=== PATIENT | female | born 1930 | race Caucasian/White ===

== ENCOUNTER 2018-02-04 11:58 | Inpatient (IN) | payer MEDICARE, OTHER ==
[~2018-02-04] VITALS: Ht 167.6 cm; Wt 64.2 kg
[2018-02-04 12:13] VITALS: BP 132/58; PULSE 50; RESP 15; TEMP 97.8; O2SAT 99
--- NOTE | 2018-02-04 12:22 | PD ---
HPI Chief Complaint: Respiratory Symptoms Time Seen by Provider: 12:08 Travel History International Travel<30 days: No Contact w/Intl Traveler<30days: No Traveled to known affect area: No History of Present Illness HPI 87-year-old female that presents to the ED for evaluation of shortness of breath with exertion as well as possible CHF exacerbation. Patient has a history of CHF, COPD, atrial fibrillation but comes here for evaluation of shortness of breath. Per patient her shortness of breath is chronic and she uses oxygen at home as well as inhalers and diuretics. Per patient she is being gaining of a 7 pounds in the past 2 weeks as well as her legs have been increasingly getting more swollen with more shortness of breath with exertion as well as with laying down. Per patient his symptoms worsened today which is what prompted family to call ambulance. Ambulance was able to give patient some breathing treatments as well as Solu-Medrol with improvement of symptoms but she continues to be swelling and complaints of shortness of breath. She denies any history of thoracocentesis. She states that she has no chest pain. No trauma. No headache. She does take Eliquis as a blood thinner. She is supposed to follow with Dr. Baure for cardiology but has not done so yet. She is new to [facility] and she is currently moving here to live. She does have multiple allergies to different medications. She denies any urinary or bowel movement issues. She states that the swelling of her legs has worsened for the past 4 days. Weight gain 7 pounds for 2 weeks. Shortness of breath worse for the past 3 days. She has orthopnea. PFSH Past Medical History Hx Anticoagulant Therapy: Yes (Eliquis) Cardiovascular Problems: Yes (CHF, CABG) Diabetes: Yes Respiratory: Yes (COPD) ?: Not Social History Tobacco Use: No Allergies-Medications (Allergen,Severity, Reaction): Coded Allergies: indomethacin (Verified Allergy, Severe, Swelling, 02/04/18) RAMO Inhibitors (Verified Allergy, Mild, Rash, 02/04/18) Penicillins (Verified Allergy, Mild, Rash, 02/04/18) colchicine (Verified Allergy, Mild, Rash, 02/04/18) pneumococcal vaccine (Verified Allergy, Mild, Swelling, 02/04/18) levofloxacin (Verified Adverse Reaction, Intermediate, Dizziness, 02/04/18) adhesive tape (Verified Adverse Reaction, Mild, 02/04/18) hydrocodone (Verified Adverse Reaction, Mild, Nausea/Vomiting, 02/04/18) codeine (Verified Adverse Reaction, Unknown, Hallucinations, 02/04/18) tramadol (Verified Adverse Reaction, Unknown, Nausea/Vomiting, 02/04/18) Reported Meds & Prescriptions Reported Meds & Active Scripts Active Reported Bumetanide 1 Mg Tab 1-3 Mg PO DIRECTED Carvedilol 6.25 Mg Tab 3.125 Mg PO BID Atorvastatin (Atorvastatin Calcium) 10 Mg Tab 10 Mg PO HS Eliquis (Apixaban) 2.5 Mg Tab 2.5 Mg PO BID Amiodarone (Amiodarone HCl) 100 Mg Tab 100 Mg PO DAILY Acetaminophen Extra Strength (Acetaminophen) 500 Mg Tablet 2 Tab PO BID PRN Cetirizine (Cetirizine HCl) 10 Mg Tab 10 Mg DAILY Review of Systems Except as stated in HPI: all other systems reviewed are Neg Physical Exam Narrative GENERAL: SKIN: Warm and dry. HEAD: Atraumatic. Normocephalic. EYES: Pupils equal and round. No scleral icterus. No injection or drainage. ENT: No nasal bleeding or discharge. Mucous membranes pink and moist. Tongue is midline. No uvula deviation. NECK: Trachea midline. No JVD. CARDIOVASCULAR: Regular rate and rhythm. No murmurs, S3, S4. RESPIRATORY: No accessory muscle use. Clear to auscultation. Breath sounds equal bilaterally. GASTROINTESTINAL: Abdomen soft, non-tender, nondistended. Hepatic and splenic margins not palpable. MUSCULOSKELETAL: Extremities without clubbing, cyanosis, or edema. No obvious deformities. Full range of motion of the upper and lower extremities bilaterally. 2+ pulses bilaterally. Patient does have 2+ pitting edema on the lower extremities or more noted on the upper part of the leg in the lower aspect. NEUROLOGICAL: Awake and alert. No obvious cranial nerve deficits. Motor grossly within normal limits. Five out of 5 muscle strength in the arms and legs. Normal speech. PSYCHIATRIC: Appropriate mood and affect; insight and judgment normal. Data Data Last Documented VS Vital Signs Date Time Temp Pulse Resp B/P (MAP) Pulse Ox O2 Delivery O2 Flow Rate FiO2 02/04/18 12:13 97.8 50 15 132/58 (82) 99 Nasal Cannula 2.00 Orders Orders Electrocardiogram (02/04/18 12:14) Complete Blood Count With Diff (02/04/18 12:14) Comprehensive Metabolic Panel (02/04/18 12:14) B-Type Natriuretic Peptide (02/04/18 12:14) Prothrombin Time / Inr (Pt) (02/04/18 12:14) Act Partial Throm Time (Ptt) (02/04/18 12:14) Magnesium (Mg) (02/04/18 12:14) Thyroid Stimulating Hormone (02/04/18 12:14) Chest, Single Ap (02/04/18 12:14) Iv Access Insert/Monitor (02/04/18 12:14) Ecg Monitoring (02/04/18 12:14) Oximetry (02/04/18 12:14) Us Leg Venous Doppler Bilat (02/04/18 ) Type And Screen (02/04/18 12:53) Red Blood Cells (Rbc) (02/04/18 12:53) Blood Product Administration (02/04/18 12:53) Sodium Chlor 0.9% 250 Ml Inj (Ns 250 Ml (02/04/18 13:00) Admit Order (Ed Use Only) (02/04/18 13:51) Labs Laboratory Tests Test 02/04/18 12:20 White Blood Count 6.5 TH/MM3 Red Blood Count 2.40 MIL/MM3 Hemoglobin 6.9 GM/DL Hematocrit 21.3 % Mean Corpuscular Volume 89.0 FL Mean Corpuscular Hemoglobin 28.6 PG Mean Corpuscular Hemoglobin Concent 32.2 % Red Cell Distribution Width 22.0 % Platelet Count 187 TH/MM3 Mean Platelet Volume 8.3 FL Neutrophils (%) (Auto) 65.5 % Lymphocytes (%) (Auto) 10.6 % Monocytes (%) (Auto) 12.8 % Eosinophils (%) (Auto) 10.3 % Basophils (%) (Auto) 0.8 % Neutrophils # (Auto) 4.2 TH/MM3 Lymphocytes # (Auto) 0.7 TH/MM3 Monocytes # (Auto) 0.8 TH/MM3 Eosinophils # (Auto) 0.7 TH/MM3 Basophils # (Auto) 0.0 TH/MM3 CBC Comment DIFF FINAL Differential Comment Prothrombin Time 12.9 SEC Prothromb Time International Ratio 1.3 RATIO Activated Partial Thromboplast Time 31.6 SEC Blood Urea Nitrogen 93 MG/DL Creatinine 2.97 MG/DL Random Glucose 117 MG/DL Total Protein 6.5 GM/DL Albumin 2.8 GM/DL Calcium Level 8.2 MG/DL Magnesium Level 2.1 MG/DL Alkaline Phosphatase 89 U/L Aspartate Amino Transf (AST/SGOT) 9 U/L Alanine Aminotransferase (ALT/SGPT) 13 U/L Total Bilirubin 0.4 MG/DL Sodium Level 138 MEQ/L Potassium Level 4.7 MEQ/L Chloride Level 102 MEQ/L Carbon Dioxide Level 27.4 MEQ/L Anion Gap 9 MEQ/L Estimat Glomerular Filtration Rate 15 ML/MIN B-Type Natriuretic Peptide 313 PG/ML Thyroid Stimulating Hormone 3rd Gen 5.740 uIU/ML MDM Medical Decision Making Medical Screen Exam Complete: Yes Emergency Medical Condition: Yes Medical Record Reviewed: Yes Interpretation(s) CBC & BMP Diagram 02/04/18 12:20 Total Protein 6.5, Albumin 2.8 L, Calcium Level 8.2 L, Magnesium Level 2.1, Alkaline Phosphatase 89, Aspartate Amino Transf (AST/SGOT) 9 L, Alanine Aminotransferase (ALT/SGPT) 13, Total Bilirubin 0.4 BNP elevated in the 300s Last Impressions Chest X-Ray 02/04/18 1214 Signed Impressions: Service Date/Time: Sunday, February 04, 2018 12:24 - CONCLUSION: 1. Cardiomegaly. The patient status post sternotomy. 2. Hyperinflated lungs. Ollie Olivas MD coags WNL Differential Diagnosis CHF exacerbation versus DVT versus COPD exacerbation versus fluid overload versus kidney failure versus acute on chronic kidney failure versus shortness of breath Narrative Course 87-year-old female that presents to the ED for evaluation of shortness of breath. Patient was properly examined and was found to have signs and symptoms consistent appears to be likely CHF failure. Labs and imaging ordered. Labs and imaging showed what appears to be acute on chronic kidney disease as well as symptomatic anemia and what appears to be CHF exacerbation. Unclear etiology of the actual symptoms the patient reports he does have 3 things against her. I do recommend admission for this. My attending Dr. Billy spoke with the family and patient were in agreement with plan. Family preferred that I do not do a rectal exam on the patient has she has had multiple workups before to have been all negative for GI bleed. She has chronic anemia for about 20 years and she gets a shot every other week but she has not gotten since November and they are concerned that this is likely what it is. She denies any signs of GI bleed or any sign of actively bleeding. Likely this is the cause of this. At this time case was discussed with Dr. Jordan who agrees to admission. I will defer giving patient any diuretics at this time secondary to her acute on chronic kidney disease. Diagnosis Primary Impression: Acute exacerbation of CHF (congestive heart failure) Qualified Codes: I50.9 - Heart failure, unspecified Additional Impressions: [id number] kidney injury Qualified Codes: N17.9 - Acute kidney failure, unspecified; N18.9 - Chronic kidney disease, unspecified Symptomatic anemia Admitting Information Admitting Physician Requests: Admit Lorenzo Sanchez Feb 04, 2018 12:22
[2018-02-04] MEDS ORDERED: CETI10 (12:42)
[2018-02-04] MEDS ORDERED: ACET-898 PO (12:42)
[2018-02-04] MEDS ORDERED: LANTUS2P SQ (12:42)
[2018-02-04] MEDS ORDERED: APIX2.5T PO (12:42)
[2018-02-04] MEDS ORDERED: AMIO0.1T PO (12:42)
[2018-02-04] MEDS ORDERED: INSU100C SQ (12:42)
[2018-02-04] MEDS ORDERED: VENTAER INH (12:42)
[2018-02-04] MEDS ORDERED: ISOS10TA3 PO (12:42)
[2018-02-04] MEDS ORDERED: BUME1TAB PO (12:42)
[2018-02-04] MEDS ORDERED: ATOR10TA15 PO (12:42)
[2018-02-04] MEDS ORDERED: CARV6.252 PO (12:42)
[2018-02-04] MEDS ORDERED: COLA100C5 PO (12:42)
[2018-02-04] MEDS ORDERED: MUCI60TA9 (12:42)
[2018-02-04] MEDS ORDERED: PRIL20TA2 (12:42)
[2018-02-04 12:46] LABS: AUTOMATED NEUTROPHIL # 4.2 TH/MM3 (1.8-7.7); BASOPHIL % 0.8 % (0.0-2.0); EOSINOPHIL # 0.7 TH/MM3 (0-0.4); EOSINOPHIL % 10.3 % (0.0-4.0); LYMPH % 10.6 % (9.0-44.0); LYMPHOCYTE # 0.7 TH/MM3 (1.0-4.8); MEAN CORPUSCULAR HEMOGLOBIN 28.6 PG (27.0-34.0); MEAN CORPUSCULAR HGB CONC 32.2 % (32.0-36.0); MEAN PLATELET VOLUME 8.3 FL (7.0-11.0); MONO % 12.8 % (0.0-8.0); MONOCYTE # 0.8 TH/MM3 (0-0.9); NEUT % 65.5 % (16.0-70.0); PLATELET COUNT 187 TH/MM3 (150-450); WHITE BLOOD COUNT 6.5 TH/MM3 (4.0-11.0)
[2018-02-04 12:53] LABS: HEMATOCRIT 21.3 % (35.0-46.0); HEMOGLOBIN 6.9 GM/DL (11.6-15.3)
--- NOTE | 2018-02-04 12:53 | RADRPT ---
EXAM DATE/TIME: 02/04/2018 12:24 [facility] COMPARISON: No previous studies available for comparison. INDICATIONS : Shortness of breath. MEDICAL HISTORY : Chronic obstructive pulmonary disease. Congestive heart failure. SURGICAL HISTORY : CABG. ENCOUNTER: Initial ACUITY: 1 day PAIN SCORE: 0/10 LOCATION: Bilateral chest FINDINGS: The patient is status post sternotomy. The heart size is enlarged. Lungs appear hyperinflated. There is a calcified granuloma at the left lung base. Lungs appear free of focal consolidation. No effusion is seen. Vascular calcifications are seen. CONCLUSION: 1. Cardiomegaly. The patient status post sternotomy. 2. Hyperinflated lungs. Ollie Olivas MD on February 04, 2018 at 12:50 Board Certified Radiologist. This report was verified electronically.
[2018-02-04 12:56] LABS: INTERNATIONAL NORMALIZED RATIO 1.3 RATIO; PROTHROMBIN TIME - PATIENT 12.9 SEC (9.8-11.6)
[2018-02-04] MEDS ORDERED: SODIUM CHLOR 0.9% 250 ML INJ 250 ML IV ONE (13:00)
[2018-02-04 13:07] LABS: ALBUMIN 2.8 GM/DL (3.4-5.0); ALT (GPT) 13 U/L (10-53); AST (GOT) 9 U/L (15-37); BICARBONATE 27.4 MEQ/L (21.0-32.0); BLOOD UREA NITROGEN 93 MG/DL (7-18); CALCIUM 8.2 MG/DL (8.5-10.1); CHLORIDE 102 MEQ/L (98-107); CREATININE 2.97 MG/DL (0.50-1.00); GLOMERULAR FILTRATION RATE 15 ML/MIN (>89); GLUCOSE,RANDOM 117 MG/DL (74-106); MAGNESIUM 2.1 MG/DL (1.5-2.5); SODIUM (NA) 138 MEQ/L (136-145)
[2018-02-04 13:16] LABS: ALKALINE PHOSPHATASE 89 U/L (45-117); TOTAL BILIRUBIN ADULT 0.4 MG/DL (0.2-1.0); TOTAL PROTEIN 6.5 GM/DL (6.4-8.2)
--- NOTE | 2018-02-04 14:18 | RADRPT ---
EXAM DATE/TIME: 02/04/2018 13:12 [facility] COMPARISON: No previous studies available for comparison. INDICATIONS : Shortness of breath. Bilateral leg swelling. MEDICAL HISTORY : Congestive heart failure. Chronic obstructive pulmonary disease. Diabetic. SURGICAL HISTORY : CABGAppendectomy. Hysterectomy. ENCOUNTER: Initial ACUITY: 4 - 6 days PAIN SCORE: 7/10 LOCATION: Bilateral leg. TECHNIQUE: Venous ultrasound of the left and right leg was performed from the inguinal ligament to the proximal calf. Real-time, color Doppler and spectral tracing, compression and augmentation techniques were us ed. FINDINGS: RIGHT LEG: There is normal compressibility of the deep venous system from the inguinal region to the proximal ca lf. No echogenic clot is seen in the lumen of the common femoral, femoral, popliteal, and posterior tibial veins. There is a normal response of the venous system to proximal and distal augmentation an d respiration. LEFT LEG: There is normal compressibility of the deep venous system from the inguinal region to the proximal ca lf. No echogenic clot is seen in the lumen of the common femoral, femoral, popliteal, and posterior tibial veins. There is a normal response of the venous system to proximal and distal augmentation an d respiration. CONCLUSION: 1. No sonographic evidence for lower extremity DVT. Hemant Nye MD on February 04, 2018 at 14:15 Board Certified Radiologist. This report was verified electronically.
[2018-02-04] MEDS ORDERED: ONDANSETRON HCL 4 MG/2 ML VIAL IVP PRN (14:30)
[2018-02-04] MEDS ORDERED: SODIUM CHLORIDE 0.9% FLUSH 10 ML FLUSH IV FLUSH PRN (14:30)
[2018-02-04] MEDS ORDERED: LACTULOSE SYRUP 20 GM/30 ML CUP PO PRN (14:30)
[2018-02-04] MEDS ORDERED: MAGNESIUM HYDROXIDE SUSP 30 ML CUP PO PRN (14:30)
[2018-02-04] MEDS ORDERED: SENNOSIDES 8.6 MG TAB PO PRN (14:30)
[2018-02-04] MEDS ORDERED: NALOXONE HCL 0.4 MG/ML AMP IV PUSH PRN (14:30)
[2018-02-04] MEDS ORDERED: BISACODYL 10 MG SUPP RECTAL PRN (14:30)
[2018-02-04] MEDS ORDERED: oxyCODONE/ACETAMINOPHEN 5 MG/325 MG TAB PO PRN (14:30)
[2018-02-04] MEDS ORDERED: ACETAMINOPHEN 325 MG TAB PO PRN (14:30)
--- NOTE | 2018-02-04 14:56 | EKG ---
Date Performed: 02/04/2018 Time Performed: 12:21:03 PTAGE: 87 years EKG: Unclear underlying rhythm due to artifact. MARKED LEFT AXIS DEVIATION RIGHT BUNDLE BRANCH B LOCK SEPTAL MYOCARDIAL INFARCTION Nonspecific T wave changes NO PREVIOUS TRACING DOCTOR: Javid Chacon Interpretating Date/Time 02/04/2018 14:55:25
[2018-02-04 15:25] LABS: % SATURATION IRON PROFILE 14.8 % (20-50); IRON (FE) 41 MCG/DL (50-170); TOTAL IRON BINDING CAPACITY 277 MCG/DL (250-450)
[2018-02-04 15:27] LABS: FERRITIN 166 NG/ML (8-252)
--- NOTE | 2018-02-04 16:25 | PD.PN.STU ---
Subjective Remarks 87 year old, white, female with history of CHF, COPD, Atrial fibrillation,Anemia , Chronic Kidney Disease, and Diabetes Mellitus presented with 2 shortness of breath for 2 days duration. Associated symptoms include lower extremity edema, approximate 7 lb weight gain over 2 week, and orthopnea. EVAC gave her Solu- Medrol and nebulizer with significant improvement of her dyspnea. She has had 2 hospitalizations for CHF exacerbation since August where she previously lived in [place]. Unsure of patients baseline kidney, pulmonary, and cardiac function. She was previously receiving Procrit for her chronic anemia but her last was in November. She has had an extensive GI and heme/onc work-up for her anemia and does not wish to receive anything invasive for her anemia currently. She moved to [facility] 2 weeks ago to live with her son. Records pending transfer. She has established with a new primary care physician in the area but has not been able to establish with any specialist. Review of systems: as noted in HPI Negative for diarrhea, nausea, vomiting, blood in stool. PMH: Chronic Kidney disease - unknown etiology, pending medical records transfer Atrial Fibrillation - Elliquis for anticoagulation therapy COPD Diabetes Congestive Heart Failure PSH: Hysterectomy CABG 1998 Objective Vitals Vital Signs Date Time Temp Pulse Resp B/P (MAP) Pulse Ox O2 Delivery O2 Flow Rate FiO2 02/04/18 12:13 97.8 50 15 132/58 (82) 99 Nasal Cannula 2.00 Result Diagram: 02/04/18 1220 02/04/18 1220 Other Results Laboratory Tests Test 02/04/18 12:20 Red Blood Count 2.40 MIL/MM3 (4.00-5.30) Hemoglobin 6.9 GM/DL (11.6-15.3) Hematocrit 21.3 % (35.0-46.0) Red Cell Distribution Width 22.0 % (11.6-17.2) Monocytes (%) (Auto) 12.8 % (0.0-8.0) Eosinophils (%) (Auto) 10.3 % (0.0-4.0) Lymphocytes # (Auto) 0.7 TH/MM3 (1.0-4.8) Eosinophils # (Auto) 0.7 TH/MM3 (0-0.4) Prothrombin Time 12.9 SEC (9.8-11.6) Activated Partial Thromboplast Time 31.6 SEC (24.3-30.1) Blood Urea Nitrogen 93 MG/DL (7-18) Creatinine 2.97 MG/DL (0.50-1.00) Random Glucose 117 MG/DL (74-106) Albumin 2.8 GM/DL (3.4-5.0) Calcium Level 8.2 MG/DL (8.5-10.1) Aspartate Amino Transf (AST/SGOT) 9 U/L (15-37) Estimat Glomerular Filtration Rate 15 ML/MIN (>89) Iron Level 41 MCG/DL (50-170) Percent Iron Saturation 14.8 % (20-50) B-Type Natriuretic Peptide 313 PG/ML (0-100) Thyroid Stimulating Hormone 3rd Gen 5.740 uIU/ML (0.358-3.740) Imaging Last 24 hours Impressions Chest X-Ray 02/04/18 1214 Signed Impressions: Service Date/Time: Sunday, February 04, 2018 12:24 - CONCLUSION: 1. Cardiomegaly. The patient status post sternotomy. 2. Hyperinflated lungs. Ollie Olivas MD Lower Extremity Ultrasound 02/04/18 0000 Signed Impressions: Service Date/Time: Sunday, February 04, 2018 13:12 - CONCLUSION: 1. No sonographic evidence for lower extremity DVT. Hemant Nye MD Objective Remarks GENERAL: Frail, appears her stated age SKIN: Warm and dry. HEAD: Normocephalic. atraumatic EYES: No scleral icterus. No injection or drainage NECK: Supple, trachea midline. JVD present. CARDIOVASCULAR: Regular rate and rhythm with faint systolic murmur best appreciated at the apex; no gallops, or rubs. RESPIRATORY: Breath sounds diminished equally bilateral. Crackles appreciated lower lung pancahl bilaterally. No accessory muscle use. GASTROINTESTINAL: Abdomen soft, non-tender, nondistended. MUSCULOSKELETAL: No cyanosis, 3+ pitting edema to the level of the knee bilaterally. BACK: Nontender without obvious deformity. Medications and IVs Current Medications Medications (Trade) Dose Ordered Sig/Elizabeth Route Start Time Stop Time Status Last Admin Sodium Chloride 250 ml @ 15 mls/hr ONCE ONCE IV 02/04/18 13:00 02/05/18 05:39 (NS Flush) 2 ml UNSCH PRN IV FLUSH 02/04/18 14:30 (NS Flush) 2 ml BID IV FLUSH 02/04/18 21:00 (Zofran Inj) 4 mg Q6H PRN IVP 02/04/18 14:30 (Tylenol) 650 mg Q6H PRN PO 02/04/18 14:30 (Percocet 5-325 Mg) 1 tab Q6H PRN PO 02/04/18 14:30 (Narcan Inj) 0.4 mg UNSCH PRN IV PUSH 02/04/18 14:30 (Linh-Colace) 1 tab BID PO 02/04/18 21:00 (Milk Of Magnesia Liq) 30 ml Q12H PRN PO 02/04/18 14:30 (Senokot) 17.2 mg Q12H PRN PO 02/04/18 14:30 (Dulcolax Supp) 10 mg DAILY PRN RECTAL 02/04/18 14:30 (Lactulose Liq) 30 ml DAILY PRN PO 02/04/18 14:30 A/P Assessment and Plan 1. CHF Exacerbation: Evidence of fluid overload with prominent edema and fluid in the lungs. Possible relation to her chronic anemia with no Procrit for 2 months leading to cardiac decompensation. CXR showed cardiomegaly. BNP 313. - Admit to floor for transfusion of 1 unit packed RBCs - Consult cardiology - order echo - start furosemide with monitoring of kidney function. 2. Kidney Failure: BUN 93, creatinine 2.97. - consult nephrology - monitor kidney function 3. COPD: good results with nebulizer and solu-medrol upon arrival. Consider possible COPD exacerbation concordantly. - 2 L nasal cannula - consult pulmonology 4. DM: patient has been experiencing signs and symptoms of hypoglycemia at home before presenting. Glucose on admission 117. - consider sliding scale insulin Moon Castrejon M3 Feb 04, 2018 16:25
[2018-02-04] MEDS: FUROSEMIDE 40 MG/4 ML VIAL IV PUSH SCH (17:00)
[2018-02-04 17:03] VITALS: BP 167/69; PULSE 63; RESP 18; O2SAT 97
--- NOTE | 2018-02-04 17:30 | HHI.HP ---
HPI Service [facility] Hospitalists Primary Care Physician Henry Rogers, Admission Diagnosis acute CHF exacerbation, acute on chronic kidney disease, anemia Diagnoses: Chief Complaint: Shortness of breath, bilateral extremity edema. Travel History International Travel<30 Days: No Contact w/Intl Traveler <30 Da: No Traveled to Known Affected Are: No History of Present Illness This is an 87-year-old white female with history of CHF, COPD, atrial fibrillation, anemia, chronic kidney disease and diabetes mellitus type 2 who presents to [facility] complaining of worsening shortness of breath for the past 2-3 days. The patient also states has been having worsening bilateral extremity edema, orthopnea, approximately 7 pound weight gain over 2 weeks. As per medical records EVAC gave her Solu-Medrol nebulizer with significant improvement of her dyspnea. Recent however denies any chest pain, fevers, chills, cough. As per patient and family members were at bedside the patient has had 2 recent hospitalization for CHF exacerbation since August where she previously lived in [place]. The patient is unknown of her baseline kidney, however states that she has been getting Procrit before for her chronic anemia, however she last received it in November. As per patient's account she states that she had extensive GI and hematology workup for her anemia and she refuses to have anything invasive done for her anemia. The patient moved to [place] 2 weeks ago with her son. Otherwise the patient denies any fevers, chills, chest pain, headache, dizziness. States she feels tired. Patient also denies any nausea, vomiting or diarrhea. The patient denies melena or hematochezia. Review of Systems As per HPI, other systems reviewed by me and negative. Past Family Social History Past Medical History Chronic Kidney disease - unknown etiology, pending medical records transfer Atrial Fibrillation - Elliquis for anticoagulation therapy COPD Diabetes Congestive Heart Failure Past Surgical History Hysterectomy CABG 1998 Reported Medications Reported Meds & Active Scripts Active Reported Bumetanide 1 Mg Tab 1-3 Mg PO DIRECTED Carvedilol 6.25 Mg Tab 3.125 Mg PO BID Atorvastatin (Atorvastatin Calcium) 10 Mg Tab 10 Mg PO HS Eliquis (Apixaban) 2.5 Mg Tab 2.5 Mg PO BID Amiodarone (Amiodarone HCl) 100 Mg Tab 100 Mg PO DAILY Acetaminophen Extra Strength (Acetaminophen) 500 Mg Tablet 2 Tab PO BID PRN Cetirizine (Cetirizine HCl) 10 Mg Tab 10 Mg DAILY Allergies: Coded Allergies: indomethacin (Verified Allergy, Severe, Swelling, 02/04/18) RAMO Inhibitors (Verified Allergy, Mild, Rash, 02/04/18) Penicillins (Verified Allergy, Mild, Rash, 02/04/18) colchicine (Verified Allergy, Mild, Rash, 02/04/18) pneumococcal vaccine (Verified Allergy, Mild, Swelling, 02/04/18) levofloxacin (Verified Adverse Reaction, Intermediate, Dizziness, 02/04/18) adhesive tape (Verified Adverse Reaction, Mild, 02/04/18) hydrocodone (Verified Adverse Reaction, Mild, Nausea/Vomiting, 02/04/18) codeine (Verified Adverse Reaction, Unknown, Hallucinations, 02/04/18) tramadol (Verified Adverse Reaction, Unknown, Nausea/Vomiting, 02/04/18) Active Ordered Medications Current Medications Medications (Trade) Dose Ordered Sig/Elizabeth Route Start Time Stop Time Status Last Admin Sodium Chloride 250 ml @ 15 mls/hr ONCE ONCE IV 02/04/18 13:00 02/05/18 05:39 (NS Flush) 2 ml UNSCH PRN IV FLUSH 02/04/18 14:30 (NS Flush) 2 ml BID IV FLUSH 02/04/18 21:00 (Zofran Inj) 4 mg Q6H PRN IVP 02/04/18 14:30 (Tylenol) 650 mg Q6H PRN PO 02/04/18 14:30 (Percocet 5-325 Mg) 1 tab Q6H PRN PO 02/04/18 14:30 (Narcan Inj) 0.4 mg UNSCH PRN IV PUSH 02/04/18 14:30 (Linh-Colace) 1 tab BID PO 02/04/18 21:00 (Milk Of Magnesia Liq) 30 ml Q12H PRN PO 02/04/18 14:30 (Senokot) 17.2 mg Q12H PRN PO 02/04/18 14:30 (Dulcolax Supp) 10 mg DAILY PRN RECTAL 02/04/18 14:30 (Lactulose Liq) 30 ml DAILY PRN PO 02/04/18 14:30 (Lasix Inj) 40 mg DAILY IV PUSH 02/04/18 16:00 02/04/18 17:00 Physical Exam Vital Signs Vital Signs Date Time Temp Pulse Resp B/P (MAP) Pulse Ox O2 Delivery O2 Flow Rate FiO2 02/04/18 12:13 97.8 50 15 132/58 (82) 99 Nasal Cannula 2.00 Physical Exam GENERAL: This is a well-nourished, well-developed patient, in no apparent distress. SKIN: No rashes, ecchymoses or lesions. Cool and dry. HEAD: Atraumatic. Normocephalic. No temporal or scalp tenderness. EYES: Pupils equal round and reactive. Extraocular motions intact. No scleral icterus. No injection or drainage. ENT: Nose without bleeding, purulent drainage or septal hematoma. Throat without erythema, tonsillar hypertrophy or exudate. Uvula midline. Airway patent. NECK: Trachea midline. No JVD or lymphadenopathy. Supple, nontender, no meningeal signs. CARDIOVASCULAR: Regular rate and rhythm without murmurs, gallops, or rubs. RESPIRATORY: Clear to auscultation. Breath sounds equal bilaterally. No wheezes , rales, or rhonchi. GASTROINTESTINAL: Abdomen soft, non-tender, nondistended. No hepato-splenomegaly , or palpable masses. No guarding. MUSCULOSKELETAL: Extremities without clubbing, cyanosis, or edema. No joint tenderness, effusion, or edema noted. No calf tenderness. Negative Homans sign bilaterally. NEUROLOGICAL: Awake and alert. Cranial nerves II through XII intact. Motor and sensory grossly within normal limits. Five out of 5 muscle strength in all muscle groups. Normal speech. Laboratory Laboratory Tests Test 02/04/18 12:20 White Blood Count 6.5 Red Blood Count 2.40 Hemoglobin 6.9 Hematocrit 21.3 Mean Corpuscular Volume 89.0 Mean Corpuscular Hemoglobin 28.6 Mean Corpuscular Hemoglobin Concent 32.2 Red Cell Distribution Width 22.0 Platelet Count 187 Mean Platelet Volume 8.3 Neutrophils (%) (Auto) 65.5 Lymphocytes (%) (Auto) 10.6 Monocytes (%) (Auto) 12.8 Eosinophils (%) (Auto) 10.3 Basophils (%) (Auto) 0.8 Neutrophils # (Auto) 4.2 Lymphocytes # (Auto) 0.7 Monocytes # (Auto) 0.8 Eosinophils # (Auto) 0.7 Basophils # (Auto) 0.0 CBC Comment DIFF FINAL Differential Comment Prothrombin Time 12.9 Prothromb Time International Ratio 1.3 Activated Partial Thromboplast Time 31.6 Blood Urea Nitrogen 93 Creatinine 2.97 Random Glucose 117 Total Protein 6.5 Albumin 2.8 Calcium Level 8.2 Magnesium Level 2.1 Alkaline Phosphatase 89 Aspartate Amino Transf (AST/SGOT) 9 Alanine Aminotransferase (ALT/SGPT) 13 Total Bilirubin 0.4 Sodium Level 138 Potassium Level 4.7 Chloride Level 102 Carbon Dioxide Level 27.4 Anion Gap 9 Estimat Glomerular Filtration Rate 15 Iron Level 41 Total Iron Binding Capacity 277 Percent Iron Saturation 14.8 Ferritin 166 B-Type Natriuretic Peptide 313 Thyroid Stimulating Hormone 3rd Gen 5.740 Result Diagram: 02/04/18 1220 02/04/18 1220 Imaging Last Impressions Chest X-Ray 02/04/18 1214 Signed Impressions: Service Date/Time: Sunday, February 04, 2018 12:24 - CONCLUSION: 1. Cardiomegaly. The patient status post sternotomy. 2. Hyperinflated lungs. Ollie Olivas MD Lower Extremity Ultrasound 02/04/18 0000 Signed Impressions: Service Date/Time: Sunday, February 04, 2018 13:12 - CONCLUSION: 1. No sonographic evidence for lower extremity DVT. Hemant Nye MD Caprini VTE Risk Assessment Caprini VTE Risk Assessment: Mod/High Risk (score >= 2) VTE Pharm Contraindication: Documented Caprini Risk Assessment Model Point Value = 1 Point Value = 2 Point Value = 3 Point Value = 5 Age 41-60 Minor surgery BMI > 25 kg/m2 Swollen legs Varicose veins or History of unexplained or recurrent spontaneous Oral contraceptives or hormone replacement Sepsis (< 1 month) Serious lung disease, including pneumonia (< 1 month) Abnormal pulmonary function Acute myocardial infarction Congestive heart failure (< 1 month) History of inflammatory bowel disease Medical patient at bed rest Age 61-74 Arthroscopic surgery Major open surgery (> 45 min) Laparoscopic surgery (> 45 min) Malignancy Confined to bed (> 72 hours) Immobilizing plaster cast Central venous access Age >= 75 History of VTE Family history of VTE Factor V Leiden Prothrombin [id number] Lupus anticoagulant Anticardiolipin antibodies Elevated serum homocysteine Heparin-induced thrombocytopenia Other congenital or acquired thrombophilia Stroke (< 1 month) Elective arthroplasty Hip, pelvis, or leg fracture Acute spinal cord injury (< 1 month) Prophylaxis Regimen Total Risk Factor Score Risk Level Prophylaxis Regimen 0-1 Low Early ambulation 2 Moderate Order ONE of the following: *Sequential Compression Device (SCD) *Heparin 5000 units SQ BID 3-4 Higher Order ONE of the following medications: *Heparin 5000 units SQ TID *Enoxaparin/Lovenox 40 mg SQ daily (WT < 150 kg, CrCl > 30 mL/min) *Enoxaparin/Lovenox 30 mg SQ daily (WT < 150 kg, CrCl > 10-29 mL/min) *Enoxaparin/Lovenox 30 mg SQ BID (WT < 150 kg, CrCl > 30 mL/min) AND/OR *Sequential Compression Device (SCD) 5 or more Highest Order ONE of the following medications: *Heparin 5000 units SQ TID (Preferred with Epidurals) *Enoxaparin/Lovenox 40 mg SQ daily (WT < 150 kg, CrCl > 30 mL/min) *Enoxaparin/Lovenox 30 mg SQ daily (WT < 150 kg, CrCl > 10-29 mL/min) *Enoxaparin/Lovenox 30 mg SQ BID (WT < 150 kg, CrCl > 30 mL/min) AND *Sequential Compression Device (SCD) Assessment and Plan Problem List: (1) Symptomatic anemia ICD Code: D64.9 - Anemia, unspecified Status: Acute Plan: The patient to the medical floor, monitor on telemetry Transfuse unit of packed red blood cells Consult hematology. Check stool guaiac Recent refuses any GI intervention. (2) Acute exacerbation of CHF (congestive heart failure) ICD Code: I50.9 - Heart failure, unspecified Status: Acute Plan: Unknown at this time if systolic or diastolic. The patient states she has had a recent echocardiogram done on another facility in [place] last November. We will try to obtain records. Start IV Lasix 40 mg IV twice daily. Monitor renal function. (3) BREONNA (acute kidney injury) ICD Code: N17.9 - Acute kidney failure, unspecified Plan: Flattening 2.97 on admission. Unfortunately we do not have any previous records to compare with. Continue to monitor BUN/creatinine, monitor strict I's and O's, avoid nephrotoxins. (4) Diabetes ICD Code: E11.9 - Type 2 diabetes mellitus without complications Plan: Patient states she has been getting hypoglycemic in the mornings down to blood sugar 50s. I will hold patient's long-acting insulin and place only on short-acting insulin sliding scale. (5) Abnormal TSH ICD Code: R94.6 - Abnormal results of thyroid function studies Plan: TSH elevated. Will check free T4. Patient does not have history of hypothyroidism. (6) CAD (coronary artery disease) ICD Code: I25.10 - Atherosclerotic heart disease of [place] coronary artery without angina pectoris Plan: Status post CABG in 1998. Check cardiac enzymes and trend them. EKG reviewed by me shows a ventricular rate of 51 bpm, marked left axis deviation, right bundle branch block. Continue Eliquis, statin, beta-edy. (7) Atrial fibrillation ICD Code: I48.91 - Unspecified atrial fibrillation Plan: Now sinus rhythm. Continue amiodarone and Eliquis. Telemetry Assessment and Plan DVT prophylaxis: On Eliquis. Code Status Full code Discussed Condition With ED physician, patient and family members at bedside. Physician Certification 2 Midnight Certification Type: Admission for Inpatient Services Order for Inpatient Services The services are ordered in accordance with Medicare regulations or non- Medicare payer requirements, as applicable. In the case of services not specified as inpatient-only, they are appropriately provided as inpatient services in accordance with the 2-midnight benchmark. Estimated LOS (days): 2 days is the estimated time the patient will need to remain in the hospital, assuming treatment plan goals are met and no additional complications. Post-Hospital Plan: Home Problem Qualifiers (1) Acute exacerbation of CHF (congestive heart failure): Qualified Codes: I50.9 - Heart failure, unspecified (2) Diabetes: (3) Atrial fibrillation: Qualified Codes: I48.0 - Paroxysmal atrial fibrillation Ty Mora MD Feb 04, 2018 17:30
[2018-02-04] MEDS ORDERED: ALBUTEROL SULFATE 90 MCG/ACT HFA 8 GM INHALER INH PRN (17:45)
[2018-02-04] MEDS ORDERED: DEXTROSE 50% IN WATER 50 ML VIAL(D50) IV PUSH PRN (17:45)
[2018-02-04] MEDS ORDERED: ACETAMINOPHEN 500 MG CPLT PO PRN (17:45)
[2018-02-04] MEDS ORDERED: GLUCAGON 1 MG/ML VIAL OTHER PRN (17:45)
[2018-02-04] MEDS ORDERED: PILL SPLITTER OTHER PRN (18:00)
[2018-02-04 18:15] VITALS: BP 152/70; PULSE 64; RESP 21; TEMP 97.7; O2SAT 100
[2018-02-04 18:34] VITALS: BP 142/66; PULSE 72; RESP 20; TEMP 98.2; O2SAT 100
[2018-02-04 20:00] VITALS: BP 155/63; PULSE 66; RESP 19; TEMP 97.8; O2SAT 98
[2018-02-04 20:30] VITALS: BP 156/70; PULSE 66; RESP 18; TEMP 97.7; O2SAT 97
[2018-02-04] MEDS ORDERED: DOCUSATE SODIUM 50 MG/SENNA 8.6 MG TAB PO SCH (21:00)
[2018-02-04] MEDS: INSULIN ASPART SUPPLEMENTAL SCALE SQ SCH (21:04)
[2018-02-04] MEDS: DOCUSATE SODIUM 100 MG CAP PO SCH (21:26)
[2018-02-04] MEDS ORDERED: FUROSEMIDE 20 MG/2 ML VIAL IV PUSH ONE (21:30)
[2018-02-04] MEDS: APIXABAN 2.5 MG TABLET PO SCH (21:43)
[2018-02-04] MEDS: ATORVASTATIN 10 MG TAB PO SCH (21:44)
[2018-02-04] MEDS: CARVEDILOL 3.125 MG TAB PO SCH (21:44)
[2018-02-04] MEDS: SODIUM CHLORIDE 0.9% FLUSH 10 ML FLUSH IV FLUSH SCH (21:45)
[2018-02-04] MEDS: ISOSORBIDE MONONITRATE 20 MG TAB PO SCH (21:47)
[2018-02-05] VITALS (21 sets, daily range): BP systolic 123–156; BP diastolic 57–76; PULSE 53–69; RESP 17–20; TEMP 97.1–98.2; O2SAT 96–99
[2018-02-05] MEDS: RESP: ALBUTEROL 2.5 MG/IPRATROPIUM 0.5 MG NEB (PRN) NEB ×2 (00:53→09:41)
[2018-02-05 09:11] LABS: AUTOMATED NEUTROPHIL # 3.8 TH/MM3 (1.8-7.7); BASOPHIL % 0.5 % (0.0-2.0); EOSINOPHIL % 0.1 % (0.0-4.0); HEMATOCRIT 27.2 % (35.0-46.0); HEMOGLOBIN 9.2 GM/DL (11.6-15.3); LYMPH % 7.1 % (9.0-44.0); LYMPHOCYTE # 0.3 TH/MM3 (1.0-4.8); MEAN CELL VOLUME 87.9 FL (80.0-100.0); MEAN CORPUSCULAR HEMOGLOBIN 29.6 PG (27.0-34.0); MEAN CORPUSCULAR HGB CONC 33.7 % (32.0-36.0); MEAN PLATELET VOLUME 8.3 FL (7.0-11.0); MONO % 12.6 % (0.0-8.0); MONOCYTE # 0.6 TH/MM3 (0-0.9); NEUT % 79.7 % (16.0-70.0); PLATELET COUNT 186 TH/MM3 (150-450); RED CELL DISTRIBUTION WIDTH 18.2 % (11.6-17.2); WHITE BLOOD COUNT 4.8 TH/MM3 (4.0-11.0)
[2018-02-05] MEDS: INSULIN ASPART SUPPLEMENTAL SCALE SQ SCH ×4 (09:30→21:12)
[2018-02-05] MEDS: ISOSORBIDE MONONITRATE 20 MG TAB PO SCH ×2 (09:31→21:10)
[2018-02-05] MEDS: AMIODARONE 200 MG TAB PO SCH (09:31)
[2018-02-05] MEDS: CETIRIZINE HCL 10 MG TAB PO SCH (09:31)
[2018-02-05] MEDS: DOCUSATE SODIUM 100 MG CAP PO SCH ×2 (09:31→21:09)
[2018-02-05] MEDS: APIXABAN 2.5 MG TABLET PO SCH ×2 (09:31→21:10)
[2018-02-05] MEDS: CARVEDILOL 3.125 MG TAB PO SCH ×2 (09:32→21:10)
[2018-02-05 09:34] LABS: BICARBONATE 26.6 MEQ/L (21.0-32.0); CALCIUM 8.5 MG/DL (8.5-10.1); CREATININE 2.76 MG/DL (0.50-1.00)
[2018-02-05] MEDS: SODIUM CHLORIDE 0.9% FLUSH 10 ML FLUSH IV FLUSH SCH ×2 (09:34→21:12)
[2018-02-05] MEDS: FUROSEMIDE 40 MG/4 ML VIAL IV PUSH SCH ×2 (09:34→21:09)
[2018-02-05] MEDS: RESP: ALBUTEROL 2.5 MG/IPRATROPIUM 0.5 MG NEB (SCH) NEB ×3 (13:31→20:50)
--- NOTE | 2018-02-05 13:58 | ECHRPT ---
Indication: CARDIOMYOPATHY CONCLUSIONS Mild to moderately dilated left ventricle. Wall thickness is normal. The left ventricular systolic function is severely reduced with an estimated ejection fraction in th e range of 30-35%. There is global hypokinesis. The left atrial size is moderately dilated. The right atrial size is moderately dilated. Mild mitral annular calcification. Moderate mitral valve regurgitation. Mild aortic valve regurgitation. There is moderate tricuspid regurgitation. The estimated pulmonary arterial pressure is 50 mmHg. BP: / HR: Rhythm: Sinus MEASUREMENTS (Male / Female) Normal Values Technical Quality:Fair 2D ECHO LV Diastolic Diameter PLAX 5.9 cm 4.2 - 5.9 / 3.9 - 5.3 cm LV Systolic Diameter PLAX 5.3 cm IVS Diastolic Thickness 0.9 cm 0.6 - 1.0 / 0.6 - 0.9 cm LVPW Diastolic Thickness 0.9 cm 0.6 - 1.0 / 0.6 - 0.9 cm LV Relative Wall Thickness 0.3 RV Internal Dim ED PLAX 3.1 cm LVOT Diameter 1.8 cm Aortic Root Diameter 2.6 cm LA Systolic Diameter LX 4.1 cm 3.0 - 4.0 / 2.7 - 3.8 cm M-MODE AV Cusp Separation MM 1.9 cm DOPPLER AV Peak Velocity 143.0 cm/s AV Peak Gradient 8.2 mmHg AV Mean Gradient 4.0 mmHg AV Velocity Time Integral 32.8 cm LVOT Peak Velocity 82.7 cm/s LVOT Peak Gradient 2.7 mmHg LVOT Velocity Time Integral 20.1 cm AV Area Cont Eq vti 1.6 cm AV Area Cont Eq pk 1.5 cm Mitral E Point Velocity 122.0 cm/s Mitral A Point Velocity 40.5 cm/s Mitral E to A Ratio 3.0 LV E' Septal Velocity 2.7 cm/s Mitral E to LV E' Septal Ratio 45.5 TR Peak Velocity 316.0 cm/s TR Peak Gradient 39.9 mmHg Right Atrial Pressure 10.0 mmHg Pulmonary Artery Systolic Pressu 49.9 mmHg Right Ventricular Systolic Press 49.9 mmHg PV Peak Velocity 58.3 cm/s PV Peak Gradient 1.4 mmHg FINDINGS LEFT VENTRICLE Mild to moderately dilated left ventricle. Wall thickness is normal. The left ventricular systolic function is severely reduced with an estimated ejection fraction in th e range of 30-35%. There is global hypokinesis. RIGHT VENTRICLE Normal right ventricular size and systolic function. LEFT ATRIUM The left atrial size is moderately dilated. RIGHT ATRIUM The right atrial size is moderately dilated. ATRIAL SEPTUM The interatrial septum not well visualized. AORTA The aortic root and proximal ascending aorta are normal in size on limited imaging. MITRAL VALVE Mild mitral annular calcification. Moderate mitral valve regurgitation. AORTIC VALVE Trileaflet aortic valve. Mild aortic valve regurgitation. TRICUSPID VALVE There is moderate tricuspid regurgitation. The estimated pulmonary arterial pressure is 50 mmHg. PULMONARY VALVE Mild pulmonary valve regurgitation. VESSELS The inferior vena cava is dilated. Dilated inferior vena cava with poor inspiration collapse consistent with elevated right atrial pres sure. PERICARDIUM No pericardial effusion. Will Lowery MD (Electronically Signed) Final Date:05 February 2018 13:57
--- NOTE | 2018-02-05 14:24 | HHI.PR ---
Subjective Remarks Follow-up symptomatic anemia, CHF exacerbation. The patient states that her breathing feels much better today. She also states that her lower extremity edema has improved. She is still short of breath. Denies chest pain, abdominal pain, nausea, vomiting. Objective Vitals Vital Signs Date Time Temp Pulse Resp B/P (MAP) Pulse Ox O2 Delivery O2 Flow Rate FiO2 02/05/18 11:41 98.2 54 18 128/60 (82) 98 02/05/18 09:51 98 Nasal Cannula 2.00 02/05/18 09:18 58 02/05/18 07:26 98.2 60 18 143/65 (91) 99 02/05/18 05:05 97.9 64 18 133/76 (95) 98 02/05/18 04:30 98.0 66 19 155/66 97 02/05/18 04:05 97.5 65 19 150/64 98 02/05/18 03:00 97.8 65 20 143/62 98 02/05/18 02:31 97.8 66 19 137/72 98 02/05/18 02:15 97.9 65 19 138/74 99 02/05/18 02:15 97.9 65 18 138/74 99 02/05/18 02:05 97.7 69 19 143/63 97 02/05/18 01:50 97.9 66 19 130/59 98 02/05/18 01:35 98.1 66 19 123/73 98 02/05/18 00:57 97 Nasal Cannula 3.00 02/05/18 00:34 97.8 67 18 156/63 (94) 98 02/04/18 20:30 97.7 66 18 156/70 (98) 97 02/04/18 20:00 97.8 66 19 155/63 98 02/04/18 18:34 98.2 72 20 142/66 100 02/04/18 18:15 97.7 64 21 152/70 100 02/04/18 17:03 63 18 167/69 (101) 97 Nasal Cannula 2.00 I/O 02/04/18 02/04/18 02/04/18 02/05/18 02/05/18 02/05/18 06:59 14:59 22:59 06:59 14:59 22:59 Intake Total 420 ml 780 ml Balance 420 ml 780 ml Intake Oral 360 ml Packed Cells 400 ml 400 ml Blood Product IV Normal Saline Flush 20 ml 20 ml # Voids 4 1 # Bowel Movements 1 Result Diagram: 02/05/18 0740 02/05/18 0740 Imaging Last Impressions Chest X-Ray 02/04/18 1214 Signed Impressions: Service Date/Time: Sunday, February 04, 2018 12:24 - CONCLUSION: 1. Cardiomegaly. The patient status post sternotomy. 2. Hyperinflated lungs. Ollie Olivas MD Lower Extremity Ultrasound 02/04/18 0000 Signed Impressions: Service Date/Time: Sunday, February 04, 2018 13:12 - CONCLUSION: 1. No sonographic evidence for lower extremity DVT. Hemant Nye MD Objective Remarks General: Elderly female in no acute distress. Sitting up in a chair. Heart: Regular rate and rhythm. No murmur. Lungs: Scattered rhonchi. Breathing is nonlabored. Abdomen: Soft, nontender, nondistended. Extremities: 1+ bilateral lower extremity edema. Lower extremities are erythematous. Psych: Alert and oriented. Procedures None Urinary Catheter: No Vascular Central Line Catheter: No A/P Problem List: (1) Symptomatic anemia ICD Code: D64.9 - Anemia, unspecified Status: Acute (2) Acute exacerbation of CHF (congestive heart failure) ICD Code: I50.9 - Heart failure, unspecified Status: Acute (3) BREONNA (acute kidney injury) ICD Code: N17.9 - Acute kidney failure, unspecified (4) Diabetes ICD Code: E11.9 - Type 2 diabetes mellitus without complications (5) Abnormal TSH ICD Code: R94.6 - Abnormal results of thyroid function studies (6) CAD (coronary artery disease) ICD Code: I25.10 - Atherosclerotic heart disease of [place] coronary artery without angina pectoris (7) Atrial fibrillation ICD Code: I48.91 - Unspecified atrial fibrillation Assessment and Plan 1. Symptomatic anemia: Status post transfusion of 2 units PRBCs. Hemoglobin improved. Hematology consult pending. Patient reports chronic anemia and has received Procrit in the past. Stool Hemoccult pending. Patient refuses GI intervention. 2. Acute exacerbation of chronic systolic congestive heart failure: Echocardiogram shows ejection fraction of 30-35% with global hypokinesis. Consult cardiology. Continue diuresis. 3. Acute kidney injury superimposed on chronic kidney disease: Patient reports that she was followed by nephrology in [place] before moving to this area a few weeks ago. Monitor BUN and creatinine. Consult nephrology. Monitor strict intake/output. Avoid nephrotoxins. 4. Diabetes mellitus type 2: Patient reports hypoglycemia in the mornings. Levemir on hold. Monitor Accu-Cheks and cover with sliding scale insulin. 5. Abnormal TSH: Patient does not have a reported history of hypothyroidism. Check free T4. 6. Coronary artery disease: Status post CABG in 1998. Serial cardiac enzymes are negative. Continue statin, beta-edy, Eliquis. 7. Atrial fibrillation: Currently in sinus rhythm. Continue amiodarone, Eliquis. Monitor on telemetry. 8. DVT prophylaxis: Eliquis. Problem Qualifiers (1) Acute exacerbation of CHF (congestive heart failure): Qualified Codes: I50.9 - Heart failure, unspecified (2) Diabetes: (3) Atrial fibrillation: Qualified Codes: I48.0 - Paroxysmal atrial fibrillation Jareth Foster MD Feb 05, 2018 14:24
--- NOTE | 2018-02-05 15:46 | PD.CONS ---
HPI Service Cardiology Consult Requested By Dr Greenfield Reason for Consult CHF Primary Care Physician Henry Rogers, DO History of Present Illness The patient is an 87 year old female with a cardiac history of chronic CHF, CAD , HTN atrial fibrillation on Eliquis. Other notable history is CKD, O2 dependent COPD, and chronic anemia. The patient presented to the hospital for progressive SOB, orthopnea, weight gain and BLE edema. Work up revealed symptomatic anemia. Symptoms improved with transfusion 2 units of PRBCs. BNP is elevated due to CKD. CXR is negative for pulmonary edema. Echo reveals EF 30-35 % without major valvular abnormalities. Today, on evaluation her primary concern is getting an order for home 02. She denies active signs of bleeding or chest pain. She recently relocated locally to live with her son. Per the patient , she has had ~ 5 hospital admissions since . (Mónica Gore) Review of Systems Consitutional: COMPLAINS OF: Fatigue, Weight gain, DENIES: Fever, Chills, Weight loss Eyes: DENIES: Amaurosis Fugax, Change in vision HEENT: DENIES: Lightheadedness, Change in hearing Respiratory: COMPLAINS OF: Shortness of breath, DENIES: See HPI, Cough, Snoring , Wheezing, Sputum production Cardiovascular: DENIES: See HPI, Chest pain, Palpitations, Syncope, Tachycardia Gastrointestinal: DENIES: Nausea, Vomiting, Change in bowel habits, Reflux, Bloody stools, Melena Genitourinary: DENIES: Urinary incontinence, Difficulty voiding Integumentary: DENIES: Rash Neurologic: DENIES: Tingling or numbness, Memory problems, Poor Balance, Stroke symptoms Musculoskeletal: DENIES: Joint pain, Muscle pain, Limited range of motion, Back pain Psychiatric: DENIES: Anxiety, Depression, Sleep disturbances Hematologic: DENIES: Bruising tendencies, Bleeding tendencies Endocrine: COMPLAINS OF: Weight gain, DENIES: Weight loss, Thyroid disease ( Mónica Gore) Past Family Social History Allergies: Coded Allergies: indomethacin (Verified Allergy, Severe, Swelling, 02/04/18) RAMO Inhibitors (Verified Allergy, Mild, Rash, 02/04/18) Penicillins (Verified Allergy, Mild, Rash, 02/04/18) colchicine (Verified Allergy, Mild, Rash, 02/04/18) pneumococcal vaccine (Verified Allergy, Mild, Swelling, 02/04/18) levofloxacin (Verified Adverse Reaction, Intermediate, Dizziness, 02/04/18) adhesive tape (Verified Adverse Reaction, Mild, 02/04/18) hydrocodone (Verified Adverse Reaction, Mild, Nausea/Vomiting, 02/04/18) codeine (Verified Adverse Reaction, Unknown, Hallucinations, 02/04/18) tramadol (Verified Adverse Reaction, Unknown, Nausea/Vomiting, 02/04/18) Past Medical History Chronic Kidney disease Atrial Fibrillation COPD Diabetes Congestive Heart Failure HTN Anemia CAD Past Surgical History CABG 1998 Reported Medications Reported Meds & Active Scripts Active Reported Lantus Inj (Insulin Glargine) 1,000 Unit/10 Ml Vial 12 Units SQ HS Ventolin Hfa 18 GM Inh (Albuterol Sulfate) 90 Mcg/Act Aer 1 Puff INH Q4H PRN Humalog (Insulin Lispro) 100 Unit/Ml Cartridge 5 Units SQ TID Prilosec (Omeprazole Magnesium) 20 Mg Tab Isosorbide Mononitrate 10 Mg Tab 10 Mg PO BID Take 2 doses 7 hours apart. Mucinex D ER 600-60 mg Tablet (Guaifenesin/Pseudoephedrne HCl) 600 Mg-60 Mg Tab.er.12h Colace (Docusate Sodium) 100 Mg Capsule 100 Mg PO BID Cetirizine (Cetirizine HCl) 10 Mg Tab 10 Mg DAILY Bumetanide 1 Mg Tab 1-3 Mg PO DIRECTED Carvedilol 6.25 Mg Tab 3.125 Mg PO BID Atorvastatin (Atorvastatin Calcium) 10 Mg Tab 10 Mg PO HS Eliquis (Apixaban) 2.5 Mg Tab 2.5 Mg PO BID Amiodarone (Amiodarone HCl) 100 Mg Tab 100 Mg PO DAILY Acetaminophen Extra Strength (Acetaminophen) 500 Mg Tablet 2 Tab PO BID PRN Active Ordered Medications Current Medications Medications (Trade) Dose Ordered Sig/Elizabeth Route Start Time Stop Time Status Last Admin (NS Flush) 2 ml UNSCH PRN IV FLUSH 02/04/18 14:30 (NS Flush) 2 ml BID IV FLUSH 02/04/18 21:00 02/05/18 09:34 (Zofran Inj) 4 mg Q6H PRN IVP 02/04/18 14:30 (Tylenol) 650 mg Q6H PRN PO 02/04/18 14:30 (Percocet 5-325 Mg) 1 tab Q6H PRN PO 02/04/18 14:30 (Narcan Inj) 0.4 mg UNSCH PRN IV PUSH 02/04/18 14:30 (Milk Of Magnesia Liq) 30 ml Q12H PRN PO 02/04/18 14:30 (Senokot) 17.2 mg Q12H PRN PO 02/04/18 14:30 (Dulcolax Supp) 10 mg DAILY PRN RECTAL 02/04/18 14:30 (Lactulose Liq) 30 ml DAILY PRN PO 02/04/18 14:30 (Lasix Inj) 40 mg DAILY IV PUSH 02/04/18 16:00 02/05/18 09:34 (Tylenol) 1,000 mg BID PRN PO 02/04/18 17:45 (Proair Hfa Inh) 1 puff Q4H PRN INH 02/04/18 17:45 (Cordarone) 100 mg DAILY PO 02/05/18 09:00 02/05/18 09:31 (Eliquis) 2.5 mg BID PO 02/04/18 21:00 02/05/18 09:31 (Lipitor) 10 mg HS PO 02/04/18 21:00 02/04/18 21:44 (Coreg) 3.125 mg BID PO 02/04/18 21:00 02/05/18 09:32 (ZyrTEC) 10 mg DAILY PO 02/05/18 09:00 02/05/18 09:31 (Colace) 100 mg BID PO 02/04/18 21:00 02/05/18 09:31 (Ismo) 10 mg BID PO 02/04/18 21:00 02/05/18 09:31 (D50w (Vial) Inj) 50 ml UNSCH PRN IV PUSH 02/04/18 17:45 (Glucagon Inj) 1 mg UNSCH PRN OTHER 02/04/18 17:45 (NovoLOG SUPPLEMENTAL SCALE) 1 ACHS SLIDING SCALE SQ 02/04/18 21:00 02/05/18 12:29 (Pill Splitter) 1 ea UNSCH PRN OTHER 02/04/18 18:00 (Duoneb Neb) 1 ampule QID NEB NEB 02/05/18 12:00 02/05/18 13:31 Family History non contributory Social History Lives with son, recently relocated. (Mónica Gore) Physical Exam Vital Signs Vital Signs Date Time Temp Pulse Resp B/P (MAP) Pulse Ox O2 Delivery O2 Flow Rate FiO2 02/05/18 15:26 97.7 58 17 129/61 (83) 97 02/05/18 14:22 53 02/05/18 11:41 98.2 54 18 128/60 (82) 98 02/05/18 09:51 98 Nasal Cannula 2.00 02/05/18 09:18 58 02/05/18 07:26 98.2 60 18 143/65 (91) 99 02/05/18 05:05 97.9 64 18 133/76 (95) 98 02/05/18 04:30 98.0 66 19 155/66 97 02/05/18 04:05 97.5 65 19 150/64 98 02/05/18 03:00 97.8 65 20 143/62 98 02/05/18 02:31 97.8 66 19 137/72 98 02/05/18 02:15 97.9 65 19 138/74 99 02/05/18 02:15 97.9 65 18 138/74 99 02/05/18 02:05 97.7 69 19 143/63 97 02/05/18 01:50 97.9 66 19 130/59 98 02/05/18 01:35 98.1 66 19 123/73 98 02/05/18 00:57 97 Nasal Cannula 3.00 02/05/18 00:34 97.8 67 18 156/63 (94) 98 02/04/18 20:30 97.7 66 18 156/70 (98) 97 02/04/18 20:00 97.8 66 19 155/63 98 02/04/18 18:34 98.2 72 20 142/66 100 02/04/18 18:15 97.7 64 21 152/70 100 02/04/18 17:03 63 18 167/69 (101) 97 Nasal Cannula 2.00 Physical Exam GENERAL: Elderly female , son at bedside SKIN: Warm and dry. HEAD: Atraumatic. Normocephalic. EYES: Pupils equal and round. No scleral icterus. No injection or drainage. ENT: No nasal bleeding or discharge. Mucous membranes pink and moist. NECK: Trachea midline. CARDIOVASCULAR: Regular rate and rhythm. RESPIRATORY: No accessory muscle use. Clear to auscultation. Breath sounds equal bilaterally. Nasal cannula GASTROINTESTINAL: Abdomen soft, non-tender, nondistended. MUSCULOSKELETAL: BLE edema R> L, erythematous NEUROLOGICAL: Awake and alert. Normal speech. PSYCHIATRIC: Appropriate mood and affect; insight and judgment normal. Laboratory Laboratory Tests Test 02/05/18 07:40 White Blood Count 4.8 Red Blood Count 3.10 Hemoglobin 9.2 Hematocrit 27.2 Mean Corpuscular Volume 87.9 Mean Corpuscular Hemoglobin 29.6 Mean Corpuscular Hemoglobin Concent 33.7 Red Cell Distribution Width 18.2 Platelet Count 186 Mean Platelet Volume 8.3 Neutrophils (%) (Auto) 79.7 Lymphocytes (%) (Auto) 7.1 Monocytes (%) (Auto) 12.6 Eosinophils (%) (Auto) 0.1 Basophils (%) (Auto) 0.5 Neutrophils # (Auto) 3.8 Lymphocytes # (Auto) 0.3 Monocytes # (Auto) 0.6 Eosinophils # (Auto) 0.0 Basophils # (Auto) 0.0 CBC Comment DIFF FINAL Differential Comment Blood Urea Nitrogen 96 Creatinine 2.76 Random Glucose 246 Calcium Level 8.5 Sodium Level 137 Potassium Level 4.3 Chloride Level 103 Carbon Dioxide Level 26.6 Anion Gap 7 Estimat Glomerular Filtration Rate 16 (Mónica Gore) Result Diagram: 02/05/18 0740 02/05/18 0740 Imaging Last 72 hours Impressions Chest X-Ray 02/04/18 1214 Signed Impressions: Service Date/Time: Sunday, February 04, 2018 12:24 - CONCLUSION: 1. Cardiomegaly. The patient status post sternotomy. 2. Hyperinflated lungs. Ollie Olivas MD Lower Extremity Ultrasound 02/04/18 0000 Signed Impressions: Service Date/Time: Sunday, February 04, 2018 13:12 - CONCLUSION: 1. No sonographic evidence for lower extremity DVT. Hemant Nye MD (Mónica Gore) Assessment and Plan Assessment and Plan Symptomatic anemia without signs of active bleeding. Cardiomyopathy EF 30-35% Chronic systolic CHF. Elevated BNP due to renal function. CXR clear . Acute exacerbation of chronic kidney disease due to above Atrial fibrillation on Eliquis COPD ASHD PLAN: Nephrology, hematology, and pulmonary consulted Continue diuresis with careful monitoring of renal function and electrolytes Continue Eliquis for now, as the patient does not have any active signs of bleeding. Pending occult stool. Per Hospitalist note, she refused GI evaluation. Per the patient, she has had anemia since 1951. She is currently hemodynamically stable. Continue BB, amiodarone, Eliquis, isosorbide and lasix IV. The patient is not a candidate for ARB, RAMO, Entresto or spironolactone due to CKD Thank you for asking us to see this kind woman. We will continue to follow along with you. The patient was seen and evaluated by Dr Jin who completed face to face encounter and physical exam and participated in evaluation and management. (Mónica Gore) Assessment and Plan The exam, history, and the medical decision-making described in the above note were completed with the assistance of the mid-level provider. I reviewed and agree with the findings presented. I attest that I had a [id number] encounter with the patient on the same day, and personally performed and documented my assessment and findings in the medical record. Has positive stool for blood. Right leg swollen. significant cardiomyopathy (Roula Jin MD) Mónica Gore Feb 05, 2018 15:46 Roula Jin MD Feb 06, 2018 14:25
--- NOTE | 2018-02-05 18:41 | PD.CONS ---
[facility] Service Nephrology Consult Requested By Dr. Foster Reason for Consult Acute renal failure chronic kidney disease Primary Care Physician Henry Rogers, DO History of Present Illness Patient is a 87-year-old female with history of congestive heart failure, chronic kidney disease, anemia, has increasing shortness of breath admitted with congestive heart failure echocardiogram shows ejection fraction of 30-35%, patient has creatinine of 2.76, baseline creatinine unknown, she is passing urine, Lasix was given yesterday and 20 mg IV and currently at Lasix 40 mg IV daily, patient has shortness of breath and edema. Review of Systems Constitutional: COMPLAINS OF: Fatigue Respiratory: COMPLAINS OF: Shortness of breath Cardiovascular: COMPLAINS OF: Lower Extremity Edema Past Family Social History Allergies: Coded Allergies: indomethacin (Verified Allergy, Severe, Swelling, 02/04/18) RAMO Inhibitors (Verified Allergy, Mild, Rash, 02/04/18) Penicillins (Verified Allergy, Mild, Rash, 02/04/18) colchicine (Verified Allergy, Mild, Rash, 02/04/18) pneumococcal vaccine (Verified Allergy, Mild, Swelling, 02/04/18) levofloxacin (Verified Adverse Reaction, Intermediate, Dizziness, 02/04/18) adhesive tape (Verified Adverse Reaction, Mild, 02/04/18) hydrocodone (Verified Adverse Reaction, Mild, Nausea/Vomiting, 02/04/18) codeine (Verified Adverse Reaction, Unknown, Hallucinations, 02/04/18) tramadol (Verified Adverse Reaction, Unknown, Nausea/Vomiting, 02/04/18) Past Medical History Chronic Kidney disease Atrial Fibrillation COPD Diabetes Congestive Heart Failure HTN Anemia CAD Past Surgical History Coronary artery bypass graft Reported Medications Reported Meds & Active Scripts Active Reported Lantus Inj (Insulin Glargine) 1,000 Unit/10 Ml Vial 12 Units SQ HS Ventolin Hfa 18 GM Inh (Albuterol Sulfate) 90 Mcg/Act Aer 1 Puff INH Q4H PRN Humalog (Insulin Lispro) 100 Unit/Ml Cartridge 5 Units SQ TID Prilosec (Omeprazole Magnesium) 20 Mg Tab Isosorbide Mononitrate 10 Mg Tab 10 Mg PO BID Take 2 doses 7 hours apart. Mucinex D ER 600-60 mg Tablet (Guaifenesin/Pseudoephedrne HCl) 600 Mg-60 Mg Tab.er.12h Colace (Docusate Sodium) 100 Mg Capsule 100 Mg PO BID Cetirizine (Cetirizine HCl) 10 Mg Tab 10 Mg DAILY Bumetanide 1 Mg Tab 1-3 Mg PO DIRECTED Carvedilol 6.25 Mg Tab 3.125 Mg PO BID Atorvastatin (Atorvastatin Calcium) 10 Mg Tab 10 Mg PO HS Eliquis (Apixaban) 2.5 Mg Tab 2.5 Mg PO BID Amiodarone (Amiodarone HCl) 100 Mg Tab 100 Mg PO DAILY Acetaminophen Extra Strength (Acetaminophen) 500 Mg Tablet 2 Tab PO BID PRN Active Ordered Medications Current Medications Medications (Trade) Dose Ordered Sig/Elizabeth Route Start Time Stop Time Status Last Admin (NS Flush) 2 ml UNSCH PRN IV FLUSH 02/04/18 14:30 (NS Flush) 2 ml BID IV FLUSH 02/04/18 21:00 02/05/18 09:34 (Zofran Inj) 4 mg Q6H PRN IVP 02/04/18 14:30 (Tylenol) 650 mg Q6H PRN PO 02/04/18 14:30 (Percocet 5-325 Mg) 1 tab Q6H PRN PO 02/04/18 14:30 (Narcan Inj) 0.4 mg UNSCH PRN IV PUSH 02/04/18 14:30 (Milk Of Magnesia Liq) 30 ml Q12H PRN PO 02/04/18 14:30 (Senokot) 17.2 mg Q12H PRN PO 02/04/18 14:30 (Dulcolax Supp) 10 mg DAILY PRN RECTAL 02/04/18 14:30 (Lactulose Liq) 30 ml DAILY PRN PO 02/04/18 14:30 (Lasix Inj) 40 mg DAILY IV PUSH 02/04/18 16:00 02/05/18 09:34 (Tylenol) 1,000 mg BID PRN PO 02/04/18 17:45 (Proair Hfa Inh) 1 puff Q4H PRN INH 02/04/18 17:45 (Cordarone) 100 mg DAILY PO 02/05/18 09:00 02/05/18 09:31 (Eliquis) 2.5 mg BID PO 02/04/18 21:00 02/05/18 09:31 (Lipitor) 10 mg HS PO 02/04/18 21:00 02/04/18 21:44 (Coreg) 3.125 mg BID PO 02/04/18 21:00 02/05/18 09:32 (ZyrTEC) 10 mg DAILY PO 02/05/18 09:00 02/05/18 09:31 (Colace) 100 mg BID PO 02/04/18 21:00 02/05/18 09:31 (Ismo) 10 mg BID PO 02/04/18 21:00 02/05/18 09:31 (D50w (Vial) Inj) 50 ml UNSCH PRN IV PUSH 02/04/18 17:45 (Glucagon Inj) 1 mg UNSCH PRN OTHER 02/04/18 17:45 (NovoLOG SUPPLEMENTAL SCALE) 1 ACHS SLIDING SCALE SQ 02/04/18 21:00 02/05/18 17:52 (Pill Splitter) 1 ea UNSCH PRN OTHER 02/04/18 18:00 (Duoneb Neb) 1 ampule QID NEB NEB 02/05/18 12:00 02/05/18 13:31 Family History Noncontributory Social History Denies smoking or alcohol use Physical Exam Vital Signs Vital Signs Date Time Temp Pulse Resp B/P (MAP) Pulse Ox O2 Delivery O2 Flow Rate FiO2 02/05/18 16:52 57 02/05/18 15:26 97.7 58 17 129/61 (83) 97 02/05/18 14:22 53 02/05/18 11:41 98.2 54 18 128/60 (82) 98 02/05/18 09:51 98 Nasal Cannula 2.00 02/05/18 09:18 58 02/05/18 07:26 98.2 60 18 143/65 (91) 99 02/05/18 05:05 97.9 64 18 133/76 (95) 98 02/05/18 04:30 98.0 66 19 155/66 97 02/05/18 04:05 97.5 65 19 150/64 98 02/05/18 03:00 97.8 65 20 143/62 98 02/05/18 02:31 97.8 66 19 137/72 98 02/05/18 02:15 97.9 65 19 138/74 99 02/05/18 02:15 97.9 65 18 138/74 99 02/05/18 02:05 97.7 69 19 143/63 97 02/05/18 01:50 97.9 66 19 130/59 98 02/05/18 01:35 98.1 66 19 123/73 98 02/05/18 00:57 97 Nasal Cannula 3.00 02/05/18 00:34 97.8 67 18 156/63 (94) 98 02/04/18 20:30 97.7 66 18 156/70 (98) 97 02/04/18 20:00 97.8 66 19 155/63 98 Physical Exam GENERAL: Well-nourished, well-developed patient. SKIN: Warm and dry. HEAD: Normocephalic. EYES: No scleral icterus. No injection or drainage. NECK: Supple, trachea midline. No JVD or lymphadenopathy. CARDIOVASCULAR: S1-S2 irregular RESPIRATORY: Breath sounds diminished at bases GASTROINTESTINAL: Abdomen soft, non-tender, nondistended. EXTREMITIES: No cyanosis, or edema. NEUROLOGICAL: Awake, alert, and oriented x 3. Non-focal. Laboratory Laboratory Tests Test 02/05/18 07:40 White Blood Count 4.8 Red Blood Count 3.10 Hemoglobin 9.2 Hematocrit 27.2 Mean Corpuscular Volume 87.9 Mean Corpuscular Hemoglobin 29.6 Mean Corpuscular Hemoglobin Concent 33.7 Red Cell Distribution Width 18.2 Platelet Count 186 Mean Platelet Volume 8.3 Neutrophils (%) (Auto) 79.7 Lymphocytes (%) (Auto) 7.1 Monocytes (%) (Auto) 12.6 Eosinophils (%) (Auto) 0.1 Basophils (%) (Auto) 0.5 Neutrophils # (Auto) 3.8 Lymphocytes # (Auto) 0.3 Monocytes # (Auto) 0.6 Eosinophils # (Auto) 0.0 Basophils # (Auto) 0.0 CBC Comment DIFF FINAL Differential Comment Blood Urea Nitrogen 96 Creatinine 2.76 Random Glucose 246 Calcium Level 8.5 Sodium Level 137 Potassium Level 4.3 Chloride Level 103 Carbon Dioxide Level 26.6 Anion Gap 7 Estimat Glomerular Filtration Rate 16 Result Diagram: 02/05/18 0740 02/05/18 0740 Imaging Last Impressions Chest X-Ray 02/04/18 1214 Signed Impressions: Service Date/Time: Sunday, February 04, 2018 12:24 - CONCLUSION: 1. Cardiomegaly. The patient status post sternotomy. 2. Hyperinflated lungs. Ollie Olivas MD Lower Extremity Ultrasound 02/04/18 0000 Signed Impressions: Service Date/Time: Sunday, February 04, 2018 13:12 - CONCLUSION: 1. No sonographic evidence for lower extremity DVT. Hemant Nye MD Assessment and Plan Problem List: (1) BREONNA (acute kidney injury) ICD Codes: N17.9 - Acute kidney failure, unspecified Plan: This is likely due to cardiorenal syndrome, continue with diuretics as she has pulmonary hypertension and RVSP is 50 mmHg Per echocardiogram Increase Lasix dose to 40 mg IV every 12 hours Continue supportive care I will check VINNY and protein electrophoresis patient states she was followed at [place] by nephrology check those records Obtain kidney ultrasound (2) CKD (chronic kidney disease) stage 4, GFR 15-29 ml/min ICD Codes: N18.4 - Chronic kidney disease, stage 4 (severe) Plan: Check PTH and vitamin D (3) Diabetes ICD Codes: E11.9 - Type 2 diabetes mellitus without complications Plan: Continue to monitor (4) Atrial fibrillation ICD Codes: I48.91 - Unspecified atrial fibrillation Plan: Chronic (5) CAD (coronary artery disease) ICD Codes: I25.10 - Atherosclerotic heart disease of [place] coronary artery without angina pectoris Plan: Cardiology (6) Acute exacerbation of CHF (congestive heart failure) ICD Codes: I50.9 - Heart failure, unspecified Status: Acute Plan: Lasix use Problem Qualifiers (1) Diabetes: (2) Atrial fibrillation: Qualified Codes: I48.0 - Paroxysmal atrial fibrillation (3) Acute exacerbation of CHF (congestive heart failure): Qualified Codes: I50.9 - Heart failure, unspecified Heavenly Batista MD Feb 05, 2018 18:41
--- NOTE | 2018-02-05 18:58 | MB ---
cc: Lev Chapman MD DATE: 02/05/2018 CONSULTING PHYSICIAN: Dr. Foster. REASON FOR CONSULTATION: Hematology is consulted to render an opinion regarding a patient with chronic anemia. HISTORY OF PRESENT ILLNESS: The patient is a very pleasant 87-year-old female who recently moved to the [facility] who presented to the hospital with increased shortness of breath, lower extremity edema, orthopnea and a 7-pound weight gain. She was found to have congestive heart failure exacerbation. She stated she has had multiple CHF exacerbations recently. She has had history of anemia due to chronic kidney disease. She has been followed by nephrology [place]. She started getting Procrit injection about 3 years ago. She is getting Procrit about every month, but sometimes every 2 weeks. She presented with a hemoglobin of 6.9. She received a blood transfusion. When I saw her, hemoglobin was up to 9.2. The patient is feeling better. She denies any fever or chills. She has no chest pain. She denies any nausea, vomiting. He does have melena or hematochezia. Her last colonoscopy was about 4 years ago. Denies any dysuria or hematuria. PAST MEDICAL HISTORY: 1. Congestive heart failure, ejection fraction around 30% to 35%. 2. COPD. 3. Chronic anemia. 4. Chronic atrial fibrillation. 5. Chronic kidney disease. 6. Diabetes mellitus. 7. Coronary artery disease. PAST SURGICAL HISTORY: 1. Coronary artery bypass graft surgery. 2. Hysterectomy. SOCIAL HISTORY: Does not smoke or drink alcohol. She just moved to the [facility] to live with her son. FAMILY HISTORY: She has 3 sons and daughter, all healthy. She has no siblings. No family history of anemia. ALLERGIES: MULTIPLE ALLERGIES DOCUMENTED ON MEDICAL RECORD. MEDICATIONS: 1. DuoNebs. 2. Amiodarone. 3. Zyrtec. 4. Eliquis. 5. Atorvastatin. 6. Coreg. 7. Docusate. 8. Ismo. REVIEW OF SYSTEMS: CONSTITUTIONAL: As above. EYES: Negative. ENT: Negative. CARDIOVASCULAR: As above. RESPIRATORY: As above. GASTROINTESTINAL: Negative. GENITOURINARY: As above. MUSCULOSKELETAL: Negative. HEMATOLOGIC: As above. ENDOCRINE: Negative. DERMATOLOGY: Negative. PSYCHIATRIC: Negative. NEUROLOGIC: Negative. PHYSICAL EXAMINATION: VITAL SIGNS: Temperature 97.7, blood pressure 129/61, O2 saturation 97% on 2 liters nasal cannula. GENERAL: She is alert, oriented x3, no acute distress. She looks a little pale. HEENT: Atraumatic, normocephalic. Pupils are equal, round, reactive to light. Extraocular muscles are intact. No scleral icterus. Oropharynx: Dry mucosa. No lesion, no thrush. No mucositis. NECK: No thyromegaly. No palpable mass. LYMPHATIC: No palpable cervical, clavicular, axillary or inguinal lymph node. CARDIOVASCULAR: Irregular, S1, S2. LUNGS: Crackles in bilateral bases. ABDOMEN: Soft, nontender. Could not palpate liver or spleen. EXTREMITIES: 2+ lower extremity edema. No calf tenderness. SKIN: No rash or petechiae. NEUROLOGIC: Nonfocal. LABORATORY DATA: WBC 4.8, hemoglobin 9.2, platelet count of 186, creatinine 2.76, GFR 16, ferritin level 166. ASSESSMENT: 1. Chronic anemia due to chronic kidney disease. She has stage IV chronic kidney disease. She started getting Procrit injection about 3 years ago. Her last injection was in November. She presented with a hemoglobin of 6.9. She denies any gastrointestinal bleeding. Her last colonoscopy was about 4 years ago. Her ferritin level is normal. She had 2 units of packed red blood cell transfusion. Her hemoglobin is up to 9.2. We will give her a Procrit injection and continue to monitor. She can followup at [facility] after discharge to continue her Procrit injection. 2. Congestive heart failure exacerbation. Echo showed ejection fraction around 30% to 35%. She is currently on diuresis. She is responding well. 3. Chronic obstructive pulmonary disease. Shortness of breath has improved with diuresis. 4. Chronic atrial fibrillation. She is on Eliquis. 5. Chronic kidney disease, stage IV. 6. Diabetes mellitus. 7. Coronary artery disease. PLAN: 1. We will give her a Procrit injection. 2. Monitor CBC while she is in the hospital. 3. She can follow up at hematology clinic after discharge to continue her Procrit injection. 4. Discussed with the patient and her son. Thank you, Dr. Foster, for asking me to see this patient. MD PRANAV Knox//serafin , 06:11 PM , 06:38 PM [facility]
[2018-02-05] MEDS: ATORVASTATIN 10 MG TAB PO SCH (21:09)
[2018-02-05 22:39] LABS: BACTERIA, URINE MANY /hpf; BILIRUBIN, URINE NEG (NEG); BLOOD, URINE MOD (NEG); GLUCOSE,URINE NEG (NEG); HYALINE CAST, URINE 16 /lpf (RARE); KETONE, URINE NEG (NEG); MUCUS URINE FEW /lpf (OCC); NITRITE,URINE NEG (NEG); SQUAMOUS EPITHELIAL CELL URINE 3 /hpf (0-5); TRANSITIONAL EPI CELLS, URINE 2 /hpf; URINE COLOR YELLOW (YELLW/STRAW); URINE LEUKOCYTE ESTERASE LARGE (NEG)
--- NOTE | 2018-02-05 23:40 | RADRPT ---
EXAM DATE/TIME: 02/05/2018 23:00 [facility] COMPARISON: No previous studies available for comparison. INDICATIONS : Increased BUN/Creatnine. MEDICAL HISTORY : Congestive heart failure. Chronic obstructive pulmonary disease. Diabetic. SURGICAL HISTORY : CABG. Appendectomy. Hysterectomy. ENCOUNTER: Initial ACUITY: 1 day PAIN SCORE: 0/10 LOCATION: Bilateral flank MEASUREMENTS: RIGHT KIDNEY: 9.1 x 3.6 x 3.8 cm LEFT KIDNEY: 7.8 x 2.9 x 3.8 cm FINDINGS: There is cortical thinning with echogenic kidneys bilaterally. No mass or hydronephrosis. Renal vascu lar calcifications. Urinary bladder unremarkable. CONCLUSION: 1. Echogenic kidneys consistent with medical renal disease. 2. No hydronephrosis. Arvin Murphy MD on February 05, 2018 at 23:38 Board Certified Radiologist. This report was verified electronically.
[2018-02-06] VITALS (8 sets, daily range): BP systolic 119–146; BP diastolic 56–66; PULSE 58–68; RESP 17–20; TEMP 97.4–99; O2SAT 93–99
[2018-02-06] MEDS ORDERED: EPOETIN ALFA 20,000 UNITS/ML VIAL SQ ONE (07:00)
[2018-02-06] MEDS: INSULIN ASPART SUPPLEMENTAL SCALE SQ SCH ×4 (08:00→22:48)
[2018-02-06] MEDS: RESP: ALBUTEROL 2.5 MG/IPRATROPIUM 0.5 MG NEB (SCH) NEB ×4 (08:05→19:42)
--- NOTE | 2018-02-06 08:08 | MB ---
cc: Hilton Chaparro MD DATE: 02/05/2018 REQUESTING PHYSICIAN: Dr. Joe Sloan REASON FOR EVALUATION: COPD. HISTORY OF PRESENT ILLNESS: Ms. Adams is a pleasant 87-year-old female who recently moved from [place] to live with her son over here. She was living in an assisted living facility over here and was recently admitted twice over there. She has a history of congestive heart failure, coronary artery disease, status post CABG, atrial fibrillation, COPD. She is oxygen dependent, uses oxygen 3 liter nasal cannula. She has been having increasing swelling in her legs, was feeling very weak, more short of breath and decided to come to the hospital. She had a workup done. She was found to be anemic, hemoglobin of 6.9, hematocrit 21.3. She has received blood transfusions and feels somewhat better. Normally she is able to walk only half a block, mainly because of her shortness of breath and also because of the arthritis. No cough or sputum production. No fever or chills. Weight is stable. LABORATORY DATA: WBC count is 6.5, hemoglobin 6.8, hematocrit 21.3, hemoglobin 6.9, hematocrit 21.3, platelet count 187. Sodium 137, potassium 4.3, chloride 103, CO2 26, BUN 96, creatinine 2.76. INR is 1.3. IMAGING: Her chest x-ray shows cardiomegaly with hyperinflated lung field. Ultrasound of the lower extremity shows no DVT. PAST MEDICAL HISTORY: Significant for history of COPD, coronary artery disease, status post CABG, atrial fibrillation, congestive heart failure, chronic kidney disease, chronic anemia, multiple blood transfusions, diabetes mellitus, history of hysterectomy. MEDICATIONS: She is currently taking Lasix 40 mg twice a day, Atrovent nebulizer treatment, amiodarone 100 mg a day, Zyrtec 10 mg a day, Eliquis 2.5 mg twice a day, Lipitor 10 mg a day, Coreg 3.125 mg twice a day, isosorbide 10 mg twice a day and oxycodone for pain. ALLERGIES: SHE IS ALLERGIC TO RAMO INHIBITOR, PENICILLIN, CODEINE, COLCHICINE, HYDROCODONE, LEVAQUIN, PNEUMOCOCCAL VACCINE, TRAMADOL. SOCIAL HISTORY: She has no history of smoking. No alcohol use. She is a retired teacher. She is a . FAMILY HISTORY: She has 5 children. Currently, she lives with her . REVIEW OF SYSTEMS: She is able to walk only short distance, mainly because of the arthritis and shortness of breath. No DVT, pulmonary embolism. No seizure, stroke, weakness. PHYSICAL EXAMINATION: GENERAL: Frail, elderly, pleasant female, not in acute distress. VITAL SIGNS: Blood pressure 129/61, heart rate 50, respirations 17, temperature 97.7. HEENT: Pupils are equal and reactive, but she has bilateral cataracts. Oral mucosa and nasal mucosa normal. NECK: Supple. JVD not raised. CHEST: Equal air entry bilaterally. She has basal rales. HEART: S1, S2 normal. ABDOMEN: Soft, nondistended. Bowel sounds are present. LOWER EXTREMITIES: 2+ pedal edema. CENTRAL NERVOUS SYSTEM: She is alert and oriented x 3. No focal deficits. IMPRESSION: 1. Chronic obstructive pulmonary disease. 2. Chronic respiratory insufficiency requiring oxygen. 3. Congestive heart failure. 4. Chronic kidney disease. 5. Atrial fibrillation. 6. Chronic anemia. 7. Coronary artery disease, status post coronary artery bypass graft. PLAN: I discussed with the patient and her son at the bedside. We will check a blood gas, bedside pulmonary function study. Give her aerosol treatment. Monitor for electrolyte and she will need arrangement for new oxygen since her oxygen is from [place]. Further treatment will depend on the course in the hospital. Thank you, Dr. Sloan, for this consult. MD NAIDA Brown/PHILIP , 08:53 PM , 09:20 PM NISHA
[2018-02-06 08:31] LABS: BASOPHIL # 0.1 TH/MM3 (0-0.2); BASOPHIL % 0.6 % (0.0-2.0); EOSINOPHIL # 0.3 TH/MM3 (0-0.4); EOSINOPHIL % 2.7 % (0.0-4.0); HEMATOCRIT 27.5 % (35.0-46.0); HEMOGLOBIN 9.4 GM/DL (11.6-15.3); LYMPH % 4.8 % (9.0-44.0); LYMPHOCYTE # 0.5 TH/MM3 (1.0-4.8); MEAN CELL VOLUME 87.3 FL (80.0-100.0); MEAN CORPUSCULAR HEMOGLOBIN 29.7 PG (27.0-34.0); MEAN CORPUSCULAR HGB CONC 34.1 % (32.0-36.0); MEAN PLATELET VOLUME 8.2 FL (7.0-11.0); MONO % 12.2 % (0.0-8.0); MONOCYTE # 1.2 TH/MM3 (0-0.9); NEUT % 79.7 % (16.0-70.0); PLATELET COUNT 173 TH/MM3 (150-450); RED BLOOD COUNT 3.15 MIL/MM3 (4.00-5.30); RED CELL DISTRIBUTION WIDTH 19.1 % (11.6-17.2); WHITE BLOOD COUNT 10.1 TH/MM3 (4.0-11.0)
[2018-02-06 08:59] LABS: BICARBONATE 26.8 MEQ/L (21.0-32.0); CALCIUM 8.5 MG/DL (8.5-10.1); CREATININE 2.77 MG/DL (0.50-1.00)
[2018-02-06 09:03] LABS: FREE T4 1.31 NG/DL (0.76-1.46)
[2018-02-06] MEDS: APIXABAN 2.5 MG TABLET PO SCH ×2 (09:12→23:08)
[2018-02-06] MEDS: AMIODARONE 200 MG TAB PO SCH (09:12)
[2018-02-06] MEDS: ISOSORBIDE MONONITRATE 20 MG TAB PO SCH ×2 (09:12→22:45)
[2018-02-06] MEDS: DOCUSATE SODIUM 100 MG CAP PO SCH ×2 (09:12→22:45)
[2018-02-06] MEDS: CARVEDILOL 3.125 MG TAB PO SCH ×2 (09:12→22:45)
[2018-02-06] MEDS: SODIUM CHLORIDE 0.9% FLUSH 10 ML FLUSH IV FLUSH SCH ×2 (09:12→22:47)
[2018-02-06] MEDS: CETIRIZINE HCL 10 MG TAB PO SCH (09:12)
[2018-02-06] MEDS: FUROSEMIDE 40 MG/4 ML VIAL IV PUSH SCH ×2 (09:12→22:46)
--- NOTE | 2018-02-06 10:36 | PD.CARD.PN ---
Subjective Subjective Remarks Patient sitting up in chair. Denies any distress. No chest pain. Did have some SOB this AM, improved with recent breathing treatment. Her son is at her side. She reports feeling much better this AM compared to when she originally came in. Consitutional: COMPLAINS OF: Fatigue, Weight gain, DENIES: Fever, Chills, Weight loss Eyes: DENIES: Change in vision HEENT: DENIES: Lightheadedness, Change in hearing Respiratory: COMPLAINS OF: Shortness of breath, DENIES: See HPI, Cough, Snoring , Wheezing, Sputum production Cardiovascular: DENIES: See HPI, Chest pain, Palpitations, Syncope, Tachycardia Gastrointestinal: DENIES: Nausea, Vomiting, Change in bowel habits, Reflux, Bloody stools, Melena Genitourinary: DENIES: Urinary incontinence, Difficulty voiding Integumentary: DENIES: Rash Neurologic: DENIES: Tingling or numbness, Memory problems, Poor Balance, Stroke symptoms Musculoskeletal: DENIES: Joint pain, Muscle pain, Limited range of motion, Back pain Psychiatric: DENIES: Anxiety, Depression, Sleep disturbances Hematologic: DENIES: Bruising tendencies, Bleeding tendencies Endocrine: COMPLAINS OF: Weight gain, DENIES: Weight loss, Thyroid disease (Shadeed,January Radha STILL) Objective Medications Current Medications Medications (Trade) Dose Ordered Sig/Elizabeth Route Start Time Stop Time Status Last Admin (NS Flush) 2 ml UNSCH PRN IV FLUSH 02/04/18 14:30 (NS Flush) 2 ml BID IV FLUSH 02/04/18 21:00 02/06/18 09:12 (Zofran Inj) 4 mg Q6H PRN IVP 02/04/18 14:30 (Tylenol) 650 mg Q6H PRN PO 02/04/18 14:30 (Percocet 5-325 Mg) 1 tab Q6H PRN PO 02/04/18 14:30 (Narcan Inj) 0.4 mg UNSCH PRN IV PUSH 02/04/18 14:30 (Milk Of Magnesia Liq) 30 ml Q12H PRN PO 02/04/18 14:30 (Senokot) 17.2 mg Q12H PRN PO 02/04/18 14:30 (Dulcolax Supp) 10 mg DAILY PRN RECTAL 4/9/18 14:30 (Lactulose Liq) 30 ml DAILY PRN PO 02/04/18 14:30 (Tylenol) 1,000 mg BID PRN PO 02/04/18 17:45 02/05/18 21:11 (Proair Hfa Inh) 1 puff Q4H PRN INH 02/04/18 17:45 (Cordarone) 100 mg DAILY PO 02/05/18 09:00 02/06/18 09:12 (Eliquis) 2.5 mg BID PO 02/04/18 21:00 02/06/18 09:12 (Lipitor) 10 mg HS PO 02/04/18 21:00 02/05/18 21:09 (Coreg) 3.125 mg BID PO 02/04/18 21:00 02/06/18 09:12 (ZyrTEC) 10 mg DAILY PO 02/05/18 09:00 02/06/18 09:12 (Colace) 100 mg BID PO 02/04/18 21:00 02/06/18 09:12 (Ismo) 10 mg BID PO 02/04/18 21:00 02/06/18 09:12 (D50w (Vial) Inj) 50 ml UNSCH PRN IV PUSH 02/04/18 17:45 (Glucagon Inj) 1 mg UNSCH PRN OTHER 02/04/18 17:45 (NovoLOG SUPPLEMENTAL SCALE) 1 ACHS SLIDING SCALE SQ 02/04/18 21:00 02/05/18 21:12 (Pill Splitter) 1 ea UNSCH PRN OTHER 02/04/18 18:00 (Duoneb Neb) 1 ampule QID NEB NEB 02/05/18 12:00 02/06/18 08:05 (Lasix Inj) 40 mg BID IV PUSH 02/05/18 21:00 02/06/18 09:12 Vital Signs / I&O Vital Signs Date Time Temp Pulse Resp B/P (MAP) Pulse Ox O2 Delivery O2 Flow Rate FiO2 02/06/18 08:09 93 Nasal Cannula 2.50 02/06/18 07:52 97.9 68 17 146/66 (92) 96 02/06/18 05:38 98.0 63 18 139/60 (86) 95 02/06/18 00:42 97.4 60 18 119/56 (77) 97 02/05/18 22:17 18 4/10/18 21:06 97.1 60 18 124/57 (79) 96 02/05/18 20:52 97 Nasal Cannula 2.00 02/05/18 20:00 63 02/05/18 16:52 57 02/05/18 15:26 97.7 58 17 129/61 (83) 97 02/05/18 14:22 53 02/05/18 11:41 98.2 54 18 128/60 (82) 98 I/O 02/05/18 02/05/18 02/05/18 02/06/18 02/06/18 02/06/18 07:00 15:00 23:00 07:00 15:00 23:00 Intake Total 780 ml 480 ml Balance 780 ml 480 ml Intake Oral 360 ml 480 ml Packed Cells 400 ml Blood Product IV Normal Saline Flush 20 ml # Voids 4 1 1 # Bowel Movements 1 Physical Exam GENERAL: Elderly female sitting up in chair, son at bedside SKIN: Warm and dry. HEAD: Atraumatic. Normocephalic. EYES: . No injection or drainage. ENT: No nasal bleeding or discharge. Mucous membranes pink and moist. NECK: Trachea midline, No JVD CARDIOVASCULAR: Regular rate and rhythm. RESPIRATORY: No accessory muscle use. Diminished, Nasal cannula GASTROINTESTINAL: Abdomen soft, non-tender, nondistended. MUSCULOSKELETAL: BLE edema R> L, erythematous NEUROLOGICAL: Awake and alert. Normal speech. PSYCHIATRIC: Appropriate mood and affect; insight and judgment normal. Laboratory Laboratory Tests Test 02/05/18 20:00 02/06/18 08:05 Urine Color YELLOW Urine Turbidity HAZY Urine pH 6.0 Urine Specific [place] 1.015 Urine Protein TRACE mg/dL Urine Glucose (UA) NEG mg/dL Urine Ketones NEG mg/dL Urine Occult Blood MOD Urine Nitrite NEG Urine Bilirubin NEG Urine Urobilinogen LESS THAN 2.0 MG/DL Urine Leukocyte Esterase LARGE Urine RBC 4 /hpf Urine WBC 40 /hpf Urine Squamous Epithelial Cells 3 /hpf Urine Transitional Epithelial Cells 2 /hpf Urine Bacteria MANY /hpf Urine Hyaline Casts 16 /lpf Urine Mucus FEW /lpf Microscopic Urinalysis Comment CULTURE INDICATED White Blood Count 10.1 TH/MM3 Red Blood Count 3.15 MIL/MM3 Hemoglobin 9.4 GM/DL Hematocrit 27.5 % Mean Corpuscular Volume 87.3 FL Mean Corpuscular Hemoglobin 29.7 PG Mean Corpuscular Hemoglobin Concent 34.1 % Red Cell Distribution Width 19.1 % Platelet Count 173 TH/MM3 Mean Platelet Volume 8.2 FL Neutrophils (%) (Auto) 79.7 % Lymphocytes (%) (Auto) 4.8 % Monocytes (%) (Auto) 12.2 % Eosinophils (%) (Auto) 2.7 % Basophils (%) (Auto) 0.6 % Neutrophils # (Auto) 8.0 TH/MM3 Lymphocytes # (Auto) 0.5 TH/MM3 Monocytes # (Auto) 1.2 TH/MM3 Eosinophils # (Auto) 0.3 TH/MM3 Basophils # (Auto) 0.1 TH/MM3 CBC Comment DIFF FINAL Differential Comment Blood Urea Nitrogen 100 MG/DL Creatinine 2.77 MG/DL Random Glucose 160 MG/DL Calcium Level 8.5 MG/DL Sodium Level 137 MEQ/L Potassium Level 4.4 MEQ/L Chloride Level 102 MEQ/L Carbon Dioxide Level 26.8 MEQ/L Anion Gap 8 MEQ/L Estimat Glomerular Filtration Rate 16 ML/MIN Total Protein 6.5 GM/DL Free Thyroxine 1.31 NG/DL Parathyroid Hormone (Intact) 197.3 PG/ML Imaging Last 72 hours Impressions Renal Ultrasound 02/05/18 0000 Signed Impressions: Service Date/Time: Monday, February 05, 2018 23:00 - CONCLUSION: 1. Echogenic kidneys consistent with medical renal disease. 2. No hydronephrosis. Arvin Murphy MD Chest X-Ray 02/04/18 1214 Signed Impressions: Service Date/Time: Sunday, February 04, 2018 12:24 - CONCLUSION: 1. Cardiomegaly. The patient status post sternotomy. 2. Hyperinflated lungs. Ollie Olivas MD Lower Extremity Ultrasound 02/04/18 0000 Signed Impressions: Service Date/Time: Sunday, February 04, 2018 13:12 - CONCLUSION: 1. No sonographic evidence for lower extremity DVT. Hemant Nye MD ([facility]) Assessment and Plan Assessment and Plan Assessment and Plan Symptomatic anemia without signs of active bleeding. Cardiomyopathy EF 30-35% Chronic systolic CHF. Elevated BNP due to renal function. CXR clear . Acute exacerbation of chronic kidney disease due to above Atrial fibrillation on Eliquis COPD ASHD PLAN: Nephrology, hematology, and pulmonary following Improving-Hgb 9.4 this AM Continue diuresis with careful monitoring of renal function and electrolytes Continue Eliquis for now, as the patient does not have any active signs of bleeding. Pending occult stool. Per Hospitalist note, she refused GI evaluation. Per the patient, she has had anemia since 89, requiring several transfusions in the past. She is currently hemodynamically stable. Continue BB, amiodarone, Eliquis, isosorbide and lasix IV. The patient is not a candidate for ARB, RAMO, Entresto or spironolactone due to CKD The patient was seen and evaluated by Dr Jin who completed face to face encounter and physical exam and participated in evaluation and management. (Sonia Means) Assessment and Plan The exam, history, and the medical decision-making described in the above note were completed with the assistance of the mid-level provider. I reviewed and agree with the findings presented. I attest that I had a [id number] encounter with the patient on the same day, and personally performed and documented my assessment and findings in the medical record. Overall doing better has guiac positive stool refuses colonoscopy (Roula Jin MD) Sonia Means Feb 06, 2018 10:35 Roula Jin MD Feb 06, 2018 14:27
--- NOTE | 2018-02-06 12:56 | PD.ONC.PN ---
Subjective Subjective Remarks Afebrile overnight. Patient resting in chair next to bed. states she had a hard time sleeping last night. feels short of breath when she lays back, so she feels better sleeping in chair. Objective Data Date Time Temp Pulse Resp B/P (MAP) Pulse Ox O2 Delivery O2 Flow Rate FiO2 02/06/18 11:54 99.0 60 20 133/60 (84) 99 02/06/18 08:09 93 Nasal Cannula 2.50 02/06/18 07:52 97.9 68 17 146/66 (92) 96 02/06/18 05:38 98.0 63 18 139/60 (86) 95 02/06/18 00:42 97.4 60 18 119/56 (77) 97 02/05/18 22:17 18 02/05/18 21:06 97.1 60 18 124/57 (79) 96 02/05/18 20:52 97 Nasal Cannula 2.00 02/05/18 20:00 63 02/05/18 16:52 57 02/05/18 15:26 97.7 58 17 129/61 (83) 97 02/05/18 14:22 53 Result Diagram: 02/06/18 0805 02/06/18 0805 Laboratory Results Laboratory Tests Test 02/05/18 20:00 02/06/18 08:05 Urine Color YELLOW Urine Turbidity HAZY Urine pH 6.0 Urine Specific [place] 1.015 Urine Protein TRACE mg/dL Urine Glucose (UA) NEG mg/dL Urine Ketones NEG mg/dL Urine Occult Blood MOD Urine Nitrite NEG Urine Bilirubin NEG Urine Urobilinogen LESS THAN 2.0 MG/DL Urine Leukocyte Esterase LARGE Urine RBC 4 /hpf Urine WBC 40 /hpf Urine Squamous Epithelial Cells 3 /hpf Urine Transitional Epithelial Cells 2 /hpf Urine Bacteria MANY /hpf Urine Hyaline Casts 16 /lpf Urine Mucus FEW /lpf Microscopic Urinalysis Comment CULTURE INDICATED White Blood Count 10.1 TH/MM3 Red Blood Count 3.15 MIL/MM3 Hemoglobin 9.4 GM/DL Hematocrit 27.5 % Mean Corpuscular Volume 87.3 FL Mean Corpuscular Hemoglobin 29.7 PG Mean Corpuscular Hemoglobin Concent 34.1 % Red Cell Distribution Width 19.1 % Platelet Count 173 TH/MM3 Mean Platelet Volume 8.2 FL Neutrophils (%) (Auto) 79.7 % Lymphocytes (%) (Auto) 4.8 % Monocytes (%) (Auto) 12.2 % Eosinophils (%) (Auto) 2.7 % Basophils (%) (Auto) 0.6 % Neutrophils # (Auto) 8.0 TH/MM3 Lymphocytes # (Auto) 0.5 TH/MM3 Monocytes # (Auto) 1.2 TH/MM3 Eosinophils # (Auto) 0.3 TH/MM3 Basophils # (Auto) 0.1 TH/MM3 CBC Comment DIFF FINAL Differential Comment Blood Urea Nitrogen 100 MG/DL Creatinine 2.77 MG/DL Random Glucose 160 MG/DL Calcium Level 8.5 MG/DL Sodium Level 137 MEQ/L Potassium Level 4.4 MEQ/L Chloride Level 102 MEQ/L Carbon Dioxide Level 26.8 MEQ/L Anion Gap 8 MEQ/L Estimat Glomerular Filtration Rate 16 ML/MIN Total Protein 6.5 GM/DL Free Thyroxine 1.31 NG/DL Parathyroid Hormone (Intact) 197.3 PG/ML Anti-Nuclear Antibody Screen NEG Culture Results Microbiology Date/Time Source Procedure Growth Status 02/04/18 20:00 Stool Stool Stool Occult Blood (ARABELLA) - Final HEMOCCULT POSITIVE Complete 02/05/18 20:00 Urine Clean Catch Urine Culture Pending Received Administered Medications Medications (Trade) Dose Ordered Sig/Elizabeth Route PRN Reason Start Time Stop Time Status Last Admin Dose Admin Sodium Chloride (NS Flush) 2 ml BID IV FLUSH 02/04/18 21:00 02/06/18 09:12 Acetaminophen (Tylenol) 1,000 mg BID PRN PO PAIN SCALE 1 TO 5 02/04/18 17:45 02/05/18 21:11 Amiodarone HCl (Cordarone) 100 mg DAILY PO 02/05/18 09:00 02/06/18 09:12 Apixaban (Eliquis) 2.5 mg BID PO 02/04/18 21:00 02/06/18 09:12 Atorvastatin Calcium (Lipitor) 10 mg HS PO 02/04/18 21:00 02/05/18 21:09 Carvedilol (Coreg) 3.125 mg BID PO 02/04/18 21:00 02/06/18 09:12 Cetirizine HCl (ZyrTEC) 10 mg DAILY PO 02/05/18 09:00 02/06/18 09:12 Docusate Sodium (Colace) 100 mg BID PO 02/04/18 21:00 02/06/18 09:12 Isosorbide Mononitrate (Ismo) 10 mg BID PO 02/04/18 21:00 02/06/18 09:12 Insulin Aspart (NovoLOG SUPPLEMENTAL SCALE) 1 ACHS SLIDING SCALE SQ 02/04/18 21:00 02/06/18 12:26 Albuterol/ Ipratropium (Duoneb Neb) 1 ampule QID NEB NEB 02/05/18 12:00 02/06/18 12:43 Furosemide (Lasix Inj) 40 mg BID IV PUSH 02/05/18 21:00 02/06/18 09:12 Objective Remarks GENERAL: pleasant elderly female, sitting up in bed in nad. SKIN: Warm and dry. HEAD: Normocephalic. EYES: No injection or drainage. NECK: Supple, trachea midline. CARDIOVASCULAR: +S1/S2 RESPIRATORY: anterior panchal with occasional rhonchi. On O2 via NC GASTROINTESTINAL: Abdomen soft, non-tender, nondistended. EXTREMITIES: No cyanosis. ble with edema, R>L NEUROLOGICAL: No obvious focal deficit. Awake, alert, and oriented x3. Assessment/Plan Problem List: (1) Chronic anemia ICD Codes: D64.9 - Anemia, unspecified Plan: --received procrit 02/06 -- due to chronic kidney disease. S --started getting Procrit injection about 3 years ago. Her last injection prior to hospitalization was in November. --s/p 2 units of packed red blood cell transfusion. Assessment 87y/o female with chronic anemia admitted with CHF exacerbation h/o Congestive heart failure, ejection fraction around 30% to 35%. COPD. Chronic anemia. Chronic atrial fibrillation. Chronic kidney disease. Diabetes mellitus. Coronary artery disease. Plan 1. procrit injection this AM 2. monitor CBC Attending Statement The exam, history, and the medical decision-making described in the above note were completed with the assistance of the mid-level provider. I reviewed and agree with the findings presented. I attest that I had a [id number] encounter with the patient on the same day, and personally performed and documented my assessment and findings in the medical record. Still has SOB. BLE edema slightly improved. Hgb stable. Will give procrit today. Discussed with pt and her son. Adrienne Busby Feb 06, 2018 12:56 Lev Chapman MD Feb 06, 2018 13:15
--- NOTE | 2018-02-06 20:37 | HHI.NPPN ---
Subjective History of Present Illness 87-year-old white female with history of chronic kidney disease stage IV with CHF Additional Remarks Feels better today Review of Systems General Constitutional: Fatigue Objective Data Data Vital Signs Date Time Temp Pulse Resp B/P (MAP) Pulse Ox O2 Delivery O2 Flow Rate FiO2 02/06/18 16:14 98.3 58 18 136/63 (87) 98 02/06/18 13:00 3.00 02/06/18 11:54 99.0 60 20 133/60 (84) 99 02/06/18 08:09 93 Nasal Cannula 2.50 02/06/18 07:52 97.9 68 17 146/66 (92) 96 02/06/18 05:38 98.0 63 18 139/60 (86) 95 02/06/18 00:42 97.4 60 18 119/56 (77) 97 02/05/18 22:17 18 02/05/18 21:06 97.1 60 18 124/57 (79) 96 02/05/18 20:52 97 Nasal Cannula 2.00 -: 02/06/18 0805 02/06/18 0805 Physical Exam General Appearance: Well Developed, Well Nourished Neck Neck Exam: Neck Supple Pulmonary Resp Exam: Decreased Bases Cardiology CV Exam: Regular, Normal Sinus Rhythm Gastrointestinal/Abdomen GI Exam: Soft, Non-Tender, Bowel Sounds Present Extremeties Extremities Exam: No Edema Neurologic Neuro Exam: Alert, Awake Assessment/Plan Problem List: (1) BREONNA (acute kidney injury) ICD Codes: N17.9 - Acute kidney failure, unspecified Plan: This is likely due to cardiorenal syndrome, continue with diuretics as she has pulmonary hypertension and RVSP is 50 mmHg Per echocardiogram I responding to Lasix dose to 40 mg IV every 12 hours Continue supportive care Kidney ultrasound showed small echogenic kidneys (2) CKD (chronic kidney disease) stage 4, GFR 15-29 ml/min ICD Codes: N18.4 - Chronic kidney disease, stage 4 (severe) Plan: High PTH Patient taking vitamin D supplement Possibility of dialysis discussed with her in future GFR is 16 currently do not need immediate dialysis (3) Diabetes ICD Codes: E11.9 - Type 2 diabetes mellitus without complications Plan: Continue to monitor (4) Atrial fibrillation ICD Codes: I48.91 - Unspecified atrial fibrillation Plan: Chronic (5) CAD (coronary artery disease) ICD Codes: I25.10 - Atherosclerotic heart disease of [place] coronary artery without angina pectoris Plan: Cardiology (6) Acute exacerbation of CHF (congestive heart failure) ICD Codes: I50.9 - Heart failure, unspecified Status: Acute Plan: Lasix use Problem Qualifiers (1) Diabetes: (2) Atrial fibrillation: Qualified Codes: I48.0 - Paroxysmal atrial fibrillation (3) Acute exacerbation of CHF (congestive heart failure): Qualified Codes: I50.9 - Heart failure, unspecified Heavenly Batista MD Feb 06, 2018 20:37
--- NOTE | 2018-02-06 20:47 | HHI.PR ---
Subjective Remarks 87 YOWF with CAD,COPD,Anemia moved to to live with her son Breathing better Anxious to go home Daughter at Objective Vital Signs Vital Signs Date Time Temp Pulse Resp B/P (MAP) Pulse Ox O2 Delivery O2 Flow Rate FiO2 02/06/18 16:14 98.3 58 18 136/63 (87) 98 02/06/18 13:00 3.00 02/06/18 11:54 99.0 60 20 133/60 (84) 99 02/06/18 08:09 93 Nasal Cannula 2.50 02/06/18 07:52 97.9 68 17 146/66 (92) 96 02/06/18 05:38 98.0 63 18 139/60 (86) 95 02/06/18 00:42 97.4 60 18 119/56 (77) 97 02/05/18 22:17 18 02/05/18 21:06 97.1 60 18 124/57 (79) 96 02/05/18 20:52 97 Nasal Cannula 2.00 I/O 02/05/18 02/05/18 02/05/18 02/06/18 02/06/18 02/06/18 07:00 15:00 23:00 07:00 15:00 23:00 Intake Total 780 ml 480 ml Balance 780 ml 480 ml Intake Oral 360 ml 480 ml Packed Cells 400 ml Blood Product IV Normal Saline Flush 20 ml # Voids 4 1 1 # Bowel Movements 1 Result Diagram: 02/06/18 0802/06/18 0805 Objective Remarks GENERAL: Elderly WF NAD SKIN: Warm and dry. HEAD: Normocephalic. EYES: No scleral icterus. No injection or drainage. NECK: Supple, trachea midline. No JVD or lymphadenopathy. CARDIOVASCULAR: Regular rate and rhythm without murmurs, gallops, or rubs. RESPIRATORY: Breath sounds equal bilaterally. No accessory muscle use. GASTROINTESTINAL: Abdomen soft, non-tender, nondistended. MUSCULOSKELETAL: No cyanosis, ++ edema. BACK: Nontender without obvious deformity. No CVA tenderness. A/P Assessment and Plan IMPRESSION: 1. Chronic obstructive pulmonary disease. 2. Chronic respiratory insufficiency requiring oxygen. 3. Congestive heart failure. 4. Chronic kidney disease. 5. Atrial fibrillation. 6. Chronic anemia. 7. Coronary artery disease, status post coronary artery bypass graft. PLAN: Aerosol nebs Supplement 02 Diurease monitor H/H Home 02 test Hilton Chaparro MD Feb 06, 2018 20:47
[2018-02-06 22:34] LABS: ALB/GLOB RATIO (SPE) 1.35 (1.39-2.23)
[2018-02-06] MEDS: ATORVASTATIN 10 MG TAB PO SCH (22:45)
--- NOTE | 2018-02-06 23:21 | HHI.PR ---
Subjective Remarks Patient says that shortness of breath slightly improved today. Feels like she may be able to go home with home health tomorrow. Denies any chest pain. Objective Vital Signs Date Time Temp Pulse Resp B/P (MAP) Pulse Ox O2 Delivery O2 Flow Rate FiO2 02/06/18 20:49 97.8 63 18 136/60 (85) 97 02/06/18 16:14 98.3 58 18 136/63 (87) 98 02/06/18 13:00 3.00 02/06/18 11:54 99.0 60 20 133/60 (84) 99 02/06/18 08:09 93 Nasal Cannula 2.50 02/06/18 07:52 97.9 68 17 146/66 (92) 96 02/06/18 05:38 98.0 63 18 139/60 (86) 95 02/06/18 00:42 97.4 60 18 119/56 (77) 97 Result Diagram: 02/06/1880402/06/18 08 Objective Remarks GENERAL: patient sitting up in chair. Appears comfortable. SKIN: Warm and dry. HEAD: Normocephalic. EYES: No scleral icterus. No injection or drainage. NECK: Supple, trachea midline. No JVD. CARDIOVASCULAR: Regular rate and rhythm without murmurs, gallops, or rubs. RESPIRATORY: Breath sounds equal bilaterally. No accessory muscle use. GASTROINTESTINAL: Abdomen soft, non-tender, nondistended. MUSCULOSKELETAL: No cyanosis. +2 bilateral lower extremity edema without erythema or broken skin BACK: Nontender without obvious deformity. No CVA tenderness. A/P Assessment and Plan //Symptomatic anemia: Status post transfusion of 2 units PRBCs. Hemoglobin improved. Hematology consult pending. Patient reports chronic anemia and has received Procrit in the past. Stool Hemoccult pending. Patient refuses GI intervention. = Hemoglobin stable. //Acute exacerbation of chronic systolic congestive heart failure: Echocardiogram shows ejection fraction of 30-35% with global hypokinesis. Cardiology following.. Continue diuresis. =start fluid restrictions. Discussed the daily weights with patient, and she decubitus at home. //Acute kidney injury superimposed on chronic kidney disease: Patient reports that she was followed by nephrology in [place] before moving to this area a few weeks ago. Monitor BUN and creatinine. Consult nephrology. Monitor strict intake/output. Avoid nephrotoxins. //Diabetes mellitus type 2: Patient reports hypoglycemia in the mornings. Levemir on hold. Monitor Accu-Cheks and cover with sliding scale insulin. = Constrictors acceptable. Continue to monitor. //Abnormal TSH: Patient does not have a reported history of hypothyroidism. Check free T4. // Coronary artery disease: Status post CABG in 1998. Serial cardiac enzymes are negative. Continue statin, beta-edy, Eliquis. //Atrial fibrillation: Currently in sinus rhythm. Continue amiodarone, Eliquis. Monitor on telemetry. // DVT prophylaxis: Eliquis. Discharge Planning discharge hopefully 1-2 days when cleared by consultants. Joe Sloan MD Feb 06, 2018 23:21
[2018-02-07 00:34] VITALS: BP 127/56; PULSE 55; RESP 18; TEMP 98.2; O2SAT 97
--- NOTE | 2018-02-07 07:25 | PD.ONC.PN ---
Subjective Subjective Remarks Feeling stronger. Wanted to go home. SOB improved. Objective Data Date Time Temp Pulse Resp B/P (MAP) Pulse Ox O2 Delivery O2 Flow Rate FiO2 02/07/18 00:34 98.2 55 18 127/56 (79) 97 02/06/18 20:49 97.8 63 18 136/60 (85) 97 02/06/18 19:42 99 Nasal Cannula 2.00 02/06/18 16:14 98.3 58 18 136/63 (87) 98 02/06/18 13:00 3.00 02/06/18 11:54 99.0 60 20 133/60 (84) 99 02/06/18 08:09 93 Nasal Cannula 2.50 02/06/18 07:52 97.9 68 17 146/66 (92) 96 Result Diagram: 02/06/1880402/06/18 08 Laboratory Results Laboratory Tests Test 02/06/18 08:05 White Blood Count 10.1 TH/MM3 Red Blood Count 3.15 MIL/MM3 Hemoglobin 9.4 GM/DL Hematocrit 27.5 % Mean Corpuscular Volume 87.3 FL Mean Corpuscular Hemoglobin 29.7 PG Mean Corpuscular Hemoglobin Concent 34.1 % Red Cell Distribution Width 19.1 % Platelet Count 173 TH/MM3 Mean Platelet Volume 8.2 FL Neutrophils (%) (Auto) 79.7 % Lymphocytes (%) (Auto) 4.8 % Monocytes (%) (Auto) 12.2 % Eosinophils (%) (Auto) 2.7 % Basophils (%) (Auto) 0.6 % Neutrophils # (Auto) 8.0 TH/MM3 Lymphocytes # (Auto) 0.5 TH/MM3 Monocytes # (Auto) 1.2 TH/MM3 Eosinophils # (Auto) 0.3 TH/MM3 Basophils # (Auto) 0.1 TH/MM3 CBC Comment DIFF FINAL Differential Comment Blood Urea Nitrogen 100 MG/DL Creatinine 2.77 MG/DL Random Glucose 160 MG/DL Calcium Level 8.5 MG/DL Sodium Level 137 MEQ/L Potassium Level 4.4 MEQ/L Chloride Level 102 MEQ/L Carbon Dioxide Level 26.8 MEQ/L Anion Gap 8 MEQ/L Estimat Glomerular Filtration Rate 16 ML/MIN Total Protein 6.5 GM/DL Albumin 3.74 GM/DL Albumin/Globulin Ratio 1.35 Dnzqs-3-Aemewmpbg 0.27 GM/DL Iznop-9-Bmnaijymi 0.81 GM/DL Beta Globulins 0.72 GM/DL Gamma Globulins 0.96 GM/DL 25-Hydroxy Vitamin D Total 10.9 ng/ML Free Thyroxine 1.31 NG/DL Parathyroid Hormone (Intact) 197.3 PG/ML Anti-Nuclear Antibody Screen NEG Culture Results Microbiology Date/Time Source Procedure Growth Status 02/04/18 20:00 Stool Stool Stool Occult Blood (ARABELLA) - Final HEMOCCULT POSITIVE Complete 02/05/18 20:00 Urine Clean Catch Urine Culture - Preliminary Gram Negative Hansel Resulted Administered Medications Medications (Trade) Dose Ordered Sig/Elizabeth Route PRN Reason Start Time Stop Time Status Last Admin Dose Admin Sodium Chloride (NS Flush) 2 ml BID IV FLUSH 02/04/18 21:00 02/06/18 22:47 Acetaminophen (Tylenol) 1,000 mg BID PRN PO PAIN SCALE 1 TO 5 02/04/18 17:45 02/05/18 21:11 Amiodarone HCl (Cordarone) 100 mg DAILY PO 02/05/18 09:00 02/06/18 09:12 Apixaban (Eliquis) 2.5 mg BID PO 02/04/18 21:00 02/06/18 23:08 Atorvastatin Calcium (Lipitor) 10 mg HS PO 02/04/18 21:00 02/06/18 22:45 Carvedilol (Coreg) 3.125 mg BID PO 02/04/18 21:00 02/06/18 22:45 Cetirizine HCl (ZyrTEC) 10 mg DAILY PO 02/05/18 09:00 02/06/18 09:12 Docusate Sodium (Colace) 100 mg BID PO 02/04/18 21:00 02/06/18 22:45 Isosorbide Mononitrate (Ismo) 10 mg BID PO 02/04/18 21:00 02/06/18 22:45 Insulin Aspart (NovoLOG SUPPLEMENTAL SCALE) 1 ACHS SLIDING SCALE SQ 02/04/18 21:00 02/06/18 22:48 Albuterol/ Ipratropium (Duoneb Neb) 1 ampule QID NEB NEB 02/05/18 12:00 02/06/18 19:42 Furosemide (Lasix Inj) 40 mg BID IV PUSH 02/05/18 21:00 02/06/18 22:46 Objective Remarks GENERAL: Well-nourished, well-developed patient. SKIN: Warm and dry. HEAD: Normocephalic. EYES: No scleral icterus. No injection or drainage. NECK: Supple, trachea midline. No JVD or lymphadenopathy. LYMPHATIC: No adenopathy. CARDIOVASCULAR: Regular rate and rhythm without murmurs. RESPIRATORY: Breath sounds equal bilaterally. No accessory muscle use. GASTROINTESTINAL: Abdomen soft, non-tender, nondistended. EXTREMITIES: No cyanosis, 2+ BLE edema slightly better. MUSCULOSKELETAL: Adequate muscle tone. NEUROLOGICAL: No obvious focal deficit. Awake, alert, and oriented x3. PSYCHIATRIC: Appropriate mood and affect; insight and judgment normal. Assessment/Plan Problem List: (1) Chronic anemia ICD Codes: D64.9 - Anemia, unspecified Plan: --received procrit 02/06, Hgb 9.4. -- due to chronic kidney disease. --started getting Procrit injection about 3 years ago. Her last injection prior to hospitalization was in November. --s/p 2 units of packed red blood cell transfusion. Assessment 87y/o female with chronic anemia admitted with CHF exacerbation h/o Congestive heart failure, ejection fraction around 30% to 35%. COPD. Chronic anemia. Chronic atrial fibrillation. Chronic kidney disease. Diabetes mellitus. Coronary artery disease. Plan 1. F/u hematology clinic to continue procrit injection. 2. monitor CBC 3. Can be d/c from hematology standpoint. Lev Chapman MD Feb 07, 2018 07:25
[2018-02-07 08:00] VITALS: BP 148/63; PULSE 60; RESP 16; TEMP 97.5; O2SAT 98
[2018-02-07 08:54] LABS: BICARBONATE 28.1 MEQ/L (21.0-32.0); CALCIUM 8.3 MG/DL (8.5-10.1); CREATININE 2.68 MG/DL (0.50-1.00)
[2018-02-07] MEDS: RESP: ALBUTEROL 2.5 MG/IPRATROPIUM 0.5 MG NEB (SCH) NEB ×2 (08:55→13:23)
[2018-02-07 08:56] VITALS: O2SAT 98
[2018-02-07] MEDS ORDERED: CHOLECALCIFEROL (VIT D3) 5000 UNIT CAP PO SCH (09:00)
[2018-02-07] MEDS: SODIUM CHLORIDE 0.9% FLUSH 10 ML FLUSH IV FLUSH SCH (09:00)
--- NOTE | 2018-02-07 09:12 | PD.CARD.PN ---
Subjective Subjective Remarks Patient lying in bed resting. Denies any distress. No chest pain. Did have some SOB this AM, improved with recent breathing treatment. Her daughter is at her bedside. Marilyn denies any changed overnight. She reports that her mother did not sleep well, due to being uncomfortable when lying in the bed. Consitutional: COMPLAINS OF: Fatigue, Weight gain, DENIES: Fever, Chills, Weight loss Eyes: DENIES: Change in vision HEENT: DENIES: Lightheadedness, Change in hearing Respiratory: COMPLAINS OF: Shortness of breath, DENIES: See HPI, Cough, Snoring , Wheezing, Sputum production Cardiovascular: DENIES: See HPI, Chest pain, Palpitations, Syncope, Tachycardia Gastrointestinal: DENIES: Nausea, Vomiting, Change in bowel habits, Reflux, Bloody stools, Melena Genitourinary: DENIES: Urinary incontinence, Difficulty voiding Integumentary: DENIES: Rash Neurologic: DENIES: Tingling or numbness, Memory problems, Poor Balance, Stroke symptoms Musculoskeletal: DENIES: Joint pain, Muscle pain, Limited range of motion, Back pain Psychiatric: DENIES: Anxiety, Depression, Sleep disturbances Hematologic: DENIES: Bruising tendencies, Bleeding tendencies Endocrine: COMPLAINS OF: Weight gain, DENIES: Weight loss, Thyroid disease (Shadeed,January Radha STILL) Objective Medications Current Medications Medications (Trade) Dose Ordered Sig/Elizabeth Route Start Time Stop Time Status Last Admin (NS Flush) 2 ml UNSCH PRN IV FLUSH 02/04/18 14:30 (NS Flush) 2 ml BID IV FLUSH 02/04/18 21:00 02/06/18 22:47 (Zofran Inj) 4 mg Q6H PRN IVP 02/04/18 14:30 (Tylenol) 650 mg Q6H PRN PO 02/04/18 14:30 (Percocet 5-325 Mg) 1 tab Q6H PRN PO 02/04/18 14:30 (Narcan Inj) 0.4 mg UNSCH PRN IV PUSH 02/04/18 14:30 (Milk Of Magnesia Liq) 30 ml Q12H PRN PO 02/04/18 14:30 (Senokot) 17.2 mg Q12H PRN PO 02/04/18 14:30 (Dulcolax Supp) 10 mg DAILY PRN RECTAL 02/04/18 14:30 (Lactulose Liq) 30 ml DAILY PRN PO 02/04/18 14:30 (Tylenol) 1,000 mg BID PRN PO 02/04/18 17:45 02/05/18 21:11 (Proair Hfa Inh) 1 puff Q4H PRN INH 02/04/18 17:45 (Cordarone) 100 mg DAILY PO 02/05/18 09:00 02/06/18 09:12 (Eliquis) 2.5 mg BID PO 02/04/18 21:00 02/06/18 23:08 (Lipitor) 10 mg HS PO 02/04/18 21:00 02/06/18 22:45 (Coreg) 3.125 mg BID PO 02/04/18 21:00 02/06/18 22:45 (ZyrTEC) 10 mg DAILY PO 02/05/18 09:00 02/06/18 09:12 (Colace) 100 mg BID PO 02/04/18 21:00 02/06/18 22:45 (Ismo) 10 mg BID PO 02/04/18 21:00 02/06/18 22:45 (D50w (Vial) Inj) 50 ml UNSCH PRN IV PUSH 02/04/18 17:45 (Glucagon Inj) 1 mg UNSCH PRN OTHER 02/04/18 17:45 (NovoLOG SUPPLEMENTAL SCALE) 1 ACHS SLIDING SCALE SQ 02/04/18 21:00 02/06/18 22:48 (Pill Splitter) 1 ea UNSCH PRN OTHER 02/04/18 18:00 (Duoneb Neb) 1 ampule QID NEB NEB 02/05/18 12:00 02/07/18 08:55 (Lasix Inj) 40 mg BID IV PUSH 02/05/18 21:00 02/06/18 22:46 (Vitamin D3) 5,000 units DAILY PO 02/07/18 09:00 Vital Signs / I&O Vital Signs Date Time Temp Pulse Resp B/P (MAP) Pulse Ox O2 Delivery O2 Flow Rate FiO2 02/07/18 08:56 98 Nasal Cannula 2.00 02/07/18 00:34 98.2 55 18 127/56 (79) 97 02/06/18 20:49 97.8 63 18 136/60 (85) 97 02/06/18 19:42 99 Nasal Cannula 2.00 02/06/18 16:14 98.3 58 18 136/63 (87) 98 02/06/18 13:00 3.00 02/06/18 11:54 99.0 60 20 133/60 (84) 99 I/O 02/06/18 02/06/18 02/06/18 02/07/18 02/07/18 02/07/18 07:00 15:00 23:00 07:00 15:00 23:00 # Voids 6 Physical Exam GENERAL: Elderly female resting in bed, daughter at bedside. SKIN: Warm and dry. HEAD: Atraumatic. Normocephalic. EYES: . No injection or drainage. ENT: No nasal bleeding or discharge. Mucous membranes pink and moist. NECK: Trachea midline, No JVD CARDIOVASCULAR: Regular rate and rhythm. RESPIRATORY: No accessory muscle use. Diminished, Nasal cannula GASTROINTESTINAL: Abdomen soft, non-tender, nondistended. MUSCULOSKELETAL: BLE edema R> L, erythematous NEUROLOGICAL: Awake and alert. Normal speech. PSYCHIATRIC: Appropriate mood and affect; insight and judgment normal. Laboratory Laboratory Tests Test 02/07/18 07:25 Blood Urea Nitrogen 99 MG/DL Creatinine 2.68 MG/DL Random Glucose 143 MG/DL Calcium Level 8.3 MG/DL Sodium Level 138 MEQ/L Potassium Level 4.7 MEQ/L Chloride Level 101 MEQ/L Carbon Dioxide Level 28.1 MEQ/L Anion Gap 9 MEQ/L Estimat Glomerular Filtration Rate 17 ML/MIN Imaging Last 72 hours Impressions Renal Ultrasound 02/05/18 0000 Signed Impressions: Service Date/Time: Monday, February 05, 2018 23:00 - CONCLUSION: 1. Echogenic kidneys consistent with medical renal disease. 2. No hydronephrosis. Arvin Murphy MD Chest X-Ray 02/04/18 1214 Signed Impressions: Service Date/Time: Sunday, February 04, 2018 12:24 - CONCLUSION: 1. Cardiomegaly. The patient status post sternotomy. 2. Hyperinflated lungs. Ollie Olivas MD ([facility]) Assessment and Plan Assessment and Plan Assessment and Plan Symptomatic anemia without signs of active bleeding. Cardiomyopathy EF 30-35% Chronic systolic CHF. Elevated BNP due to renal function. CXR clear . Acute exacerbation of chronic kidney disease due to above Atrial fibrillation on Eliquis COPD ASHD PLAN: Nephrology, hematology, and pulmonary following Improving, was 9.4 yesterday. Continue diuresis with careful monitoring of renal function and electrolytes. Creatnine improved today, 2.68. Continue Eliquis for now, as the patient does not have any active signs of bleeding. Pending occult stool. Per Hospitalist note, she refused GI evaluation. Per the patient, she has had anemia since 1951, requiring several transfusions in the past. She is currently hemodynamically stable. Continue BB, amiodarone, Eliquis, isosorbide and lasix IV. The patient is not a candidate for ARB, RAMO, Entresto or spironolactone due to CKD - Daughter states they are planning to go home today with home health. Will plan to follow up in the office in 1 week. The patient was seen and evaluated by Dr Jin who completed face to face encounter and physical exam and participated in evaluation and management. (Sonia Means) Assessment and Plan The exam, history, and the medical decision-making described in the above note were completed with the assistance of the mid-level provider. I reviewed and agree with the findings presented. Doing better and stable. (Roula Jin MD) Sonia Means Feb 07, 2018 09:12 Roula Jin MD Feb 08, 2018 14:59
[2018-02-07] MEDS ORDERED: CHOL5000 PO (09:33)
[2018-02-07] MEDS ORDERED: BUME1TAB PO (09:33)
[2018-02-07] MEDS ORDERED: Albuterol-Ipratropium Neb NEB (09:33)
[2018-02-07] MEDS: AMIODARONE 200 MG TAB PO SCH (09:35)
[2018-02-07] MEDS: APIXABAN 2.5 MG TABLET PO SCH (09:35)
[2018-02-07] MEDS: CARVEDILOL 3.125 MG TAB PO SCH (09:35)
[2018-02-07] MEDS: DOCUSATE SODIUM 100 MG CAP PO SCH (09:35)
[2018-02-07] MEDS: ISOSORBIDE MONONITRATE 20 MG TAB PO SCH (09:35)
[2018-02-07] MEDS: CETIRIZINE HCL 10 MG TAB PO SCH (09:35)
[2018-02-07] MEDS: FUROSEMIDE 40 MG/4 ML VIAL IV PUSH SCH (09:36)
--- NOTE | 2018-02-07 09:40 | HHI.FF ---
Face to Face Verification Diagnosis: (1) BREONNA (acute kidney injury) (2) CKD (chronic kidney disease) stage 4, GFR 15-29 ml/min (3) Acute exacerbation of CHF (congestive heart failure) (4) Diabetes Physical Therapy Order: Evaluate and Treat Home Health Nursing Order: Medical education CHF education Nursing assessment with vital signs Instructions: PRESENTED WITH CARDIORENAL SYNDROME DUE TO FLUID OVERLOAD. We will need home health nursing to educate on CHF management, fluid restrictions of 1600 mL per day, as well as daily weights. Patient is to weigh herself daily, and contact primary care or public relations writer if weight goes up by more than 3 pounds in 3 days or more than 5 pounds in a week. Also need home health nursing for medication management Nursery Nurse Order: To Provide: Long range planning I have seen patient Dorothy Adams on 02/07/18. My clinical findings support the need for the requested home health care services because: Limited ability to care for self I certify that my clinical findings support that this patient is homebound because: Unsafe to leave home unassisted Joe Sloan MD Feb 07, 2018 09:40
[2018-02-07] MEDS: INSULIN ASPART SUPPLEMENTAL SCALE SQ SCH ×2 (09:44→13:51)
[2018-02-07] MEDS ORDERED: OXYGENDME NAS.CANULA (10:26)
[2018-02-07] MEDS ORDERED: NOVOLOGSS SQ (10:45)
--- NOTE | 2018-02-07 15:09 | HHI.PR ---
Subjective Remarks Patient says she is feeling well. Would like to go home. Denies any chest pain shortness of breath. Objective Vital Signs Date Time Temp Pulse Resp B/P (MAP) Pulse Ox O2 Delivery O2 Flow Rate FiO2 02/07/18 08:56 98 Nasal Cannula 2.00 02/07/18 08:00 97.5 60 16 148/63 (91) 98 02/07/18 00:34 98.2 55 18 127/56 (79) 97 02/06/18 20:49 97.8 63 18 136/60 (85) 97 02/06/18 19:42 99 Nasal Cannula 2.00 02/06/18 16:14 98.3 58 18 136/63 (87) 98 I/O 02/06/18 02/06/18 02/06/18 02/07/18 02/07/18 02/07/18 07:00 15:00 23:00 07:00 15:00 23:00 # Voids 6 Result Diagram: 02/06/18 0805 02/07/18 0725 Objective Remarks GENERAL: patient sitting up in chair. Appears comfortable. Alert and oriented. SKIN: Warm and dry. HEAD: Normocephalic. EYES: No scleral icterus. No injection or drainage. NECK: Supple, trachea midline. No JVD. CARDIOVASCULAR: Regular rate and rhythm without murmurs, gallops, or rubs. RESPIRATORY: Breath sounds equal bilaterally. No accessory muscle use. GASTROINTESTINAL: Abdomen soft, non-tender, nondistended. MUSCULOSKELETAL: No cyanosis. +2 bilateral lower extremity edema without erythema or broken skin BACK: Nontender without obvious deformity. No CVA tenderness. A/P Assessment and Plan //Symptomatic anemia: Status post transfusion of 2 units PRBCs. Hemoglobin improved. Hematology consult pending. Patient reports chronic anemia and has received Procrit in the past. Stool Hemoccult pending. Patient refuses GI intervention. = Hemoglobin continues stable. //Acute exacerbation of chronic systolic congestive heart failure: Echocardiogram shows ejection fraction of 30-35% with global hypokinesis. Cardiology following.. Continue diuresis. =start fluid restrictions. Discussed the daily weights with patient, and she decubitus at home. = Continue fluid restrictions, daily weights at home. Follow with cardiology, primary care at home. //Acute kidney injury superimposed on chronic kidney disease: Patient reports that she was followed by nephrology in [place] before moving to this area a few weeks ago. Monitor BUN and creatinine. Consult nephrology. Monitor strict intake/output. Avoid nephrotoxins. = Creatinine stable. Follow-up with nephrology as outpatient //Diabetes mellitus type 2: Patient reports hypoglycemia in the mornings. Levemir on hold. Monitor Accu-Cheks and cover with sliding scale insulin. = Blood sugars acceptable. Continue to monitor. //Abnormal TSH: Patient does not have a reported history of hypothyroidism. Check free T4. = T4 within normal limits. Follow-up with primary care. Recheck TSH as outpatient. // Coronary artery disease: Status post CABG in 1998. Serial cardiac enzymes are negative. Continue statin, beta-edy, Eliquis. //Atrial fibrillation: Currently in sinus rhythm. Continue amiodarone, Eliquis. Monitor on telemetry. // DVT prophylaxis: Eliquis. Discharge Planning discharge home in good condition. Continue diabetic diet. Activity ad jennifer. Please see discharge medication reconciliation for medication list. Follow-up primary care, hematology, nephrology, pulmonology, cardiology, primary care Joe Sloan MD Feb 07, 2018 15:09
--- NOTE | 2018-02-07 15:11 | HHI.DS ---
Discharge Summary Admission Date Feb 04, 2018 at 13:52 Discharge Date: Feb 07, 2018 Admitting Diagnosis acute CHF exacerbation, acute on chronic kidney disease, anemia (1) Symptomatic anemia ICD Code: D64.9 - Anemia, unspecified Status: Acute (2) Acute exacerbation of CHF (congestive heart failure) ICD Code: I50.9 - Heart failure, unspecified Status: Acute (3) BREONNA (acute kidney injury) ICD Code: N17.9 - Acute kidney failure, unspecified (4) Diabetes ICD Code: E11.9 - Type 2 diabetes mellitus without complications (5) Abnormal TSH ICD Code: R94.6 - Abnormal results of thyroid function studies (6) CAD (coronary artery disease) ICD Code: I25.10 - Atherosclerotic heart disease of [place] coronary artery without angina pectoris (7) Atrial fibrillation ICD Code: I48.91 - Unspecified atrial fibrillation Procedures None Brief History - From Admission This is an 87-year-old white female with history of CHF, COPD, atrial fibrillation, anemia, chronic kidney disease and diabetes mellitus type [address] [facility] complaining of worsening shortness of breath for the past 2-3 days. The patient also states has been having worsening bilateral extremity edema, orthopnea, approximately 7 pound weight gain over 2 weeks. As per medical records EVAC gave her Solu-Medrol nebulizer with significant improvement of her dyspnea. Recent however denies any chest pain, fevers, chills, cough. As per patient and family members were at bedside the patient has had 2 recent hospitalization for CHF exacerbation since August where she previously lived in [place]. The patient is unknown of her baseline kidney, however states that she has been getting Procrit before for her chronic anemia, however she last received it in November. As per patient's account she states that she had extensive GI and hematology workup for her anemia and she refuses to have anything invasive done for her anemia. The patient moved to [place] 2 weeks ago with her son. Otherwise the patient denies any fevers, chills, chest pain, headache, dizziness. States she feels tired. Patient also denies any nausea, vomiting or diarrhea. The patient denies melena or hematochezia. CBC/BMP: 02/06/18 0805 02/07/18 0725 Significant Findings Laboratory Tests Test 02/05/18 02:09 02/05/18 07:40 02/05/18 20:00 02/06/18 08:05 Blood Gas HCO3 27 mmol/L (22-26) Blood Gas Base Excess 2.7 mmol/L (-2-2) Arterial Blood Partial Pressure CO2 47 mmHg (38-42) Arterial Blood Oxygen Content 11.5 Vol % (12.0-20.0) Blood Gas Hemoglobin 8.8 G/DL (12.0-16.0) Red Blood Count 3.10 MIL/MM3 (4.00-5.30) 3.15 MIL/MM3 (4.00-5.30) Hemoglobin 9.2 GM/DL (11.6-15.3) 9.4 GM/DL (11.6-15.3) Hematocrit 27.2 % (35.0-46.0) 27.5 % (35.0-46.0) Red Cell Distribution Width 18.2 % (11.6-17.2) 19.1 % (11.6-17.2) Neutrophils (%) (Auto) 79.7 % (16.0-70.0) 79.7 % (16.0-70.0) Lymphocytes (%) (Auto) 7.1 % (9.0-44.0) 4.8 % (9.0-44.0) Monocytes (%) (Auto) 12.6 % (0.0-8.0) 12.2 % (0.0-8.0) Lymphocytes # (Auto) 0.3 TH/MM3 (1.0-4.8) 0.5 TH/MM3 (1.0-4.8) Blood Urea Nitrogen 96 MG/DL (7-18) 100 MG/DL (7-18) Creatinine 2.76 MG/DL (0.50-1.00) 2.77 MG/DL (0.50-1.00) Random Glucose 246 MG/DL (74-106) 160 MG/DL (74-106) Estimat Glomerular Filtration Rate 16 ML/MIN (>89) 16 ML/MIN (>89) Urine Turbidity HAZY (CLEAR) Urine Occult Blood MOD (NEG) Urine Leukocyte Esterase LARGE (NEG) Urine RBC 4 /hpf (0-3) Urine WBC 40 /hpf (0-5) Urine Bacteria MANY /hpf (NONE) Urine Mucus FEW /lpf (OCC) Urine Random Total Protein 31 MG/DL (0-11.8) Urine Protein/Creatinine Ratio 0.36 (0.00-0.14) Neutrophils # (Auto) 8.0 TH/MM3 (1.8-7.7) Monocytes # (Auto) 1.2 TH/MM3 (0-0.9) Albumin/Globulin Ratio 1.35 (1.39-2.23) 25-Hydroxy Vitamin D Total 10.9 ng/ML (30-100) Parathyroid Hormone (Intact) 197.3 PG/ML (12.4-76.8) Test 02/07/18 07:25 Blood Urea Nitrogen 99 MG/DL (7-18) Creatinine 2.68 MG/DL (0.50-1.00) Random Glucose 143 MG/DL (74-106) Calcium Level 8.3 MG/DL (8.5-10.1) Estimat Glomerular Filtration Rate 17 ML/MIN (>89) Imaging Last Impressions Renal Ultrasound 02/05/18 0000 Signed Impressions: Service Date/Time: Monday, February 05, 2018 23:00 - CONCLUSION: 1. Echogenic kidneys consistent with medical renal disease. 2. No hydronephrosis. Arvin Murphy MD Chest X-Ray 02/04/18 1214 Signed Impressions: Service Date/Time: Sunday, February 04, 2018 12:24 - CONCLUSION: 1. Cardiomegaly. The patient status post sternotomy. 2. Hyperinflated lungs. Ollie Olivas MD Lower Extremity Ultrasound 02/04/18 0000 Signed Impressions: Service Date/Time: Sunday, February 04, 2018 13:12 - CONCLUSION: 1. No sonographic evidence for lower extremity DVT. Hemant Nye MD PE at Discharge General: Elderly female in no acute distress. Sitting up in a chair. Heart: Regular rate and rhythm. No murmur. Lungs: Scattered rhonchi. Breathing is nonlabored. Abdomen: Soft, nontender, nondistended. Extremities: 1+ bilateral lower extremity edema. Lower extremities are erythematous. Psych: Alert and oriented. Hospital Course Patient was found to have hemoglobin of 6.9 on admission, which improved to 9.2 after transfusion 2 units PRBCs. Patient refused GI intervention. Hematology was consulted and patient received Procrit. She'll need a follow-up with hematology in the future.Cardiology recommends continuing on Eliquis Hesters no evidence of acute bleeding, only anemia of renal disease. Chest x-ray on admission with cardiomegaly, no acute findings as above. Ultrasound negative for lower extremity DVT. BNP 313. Patient was found to have acute kidney injury, with ultrasound showing echogenic kidneys and no hydronephrosis as above. Serial troponins are negative. Echocardiogram showed ejection fraction of 35% global hypokinesis cardiology was consulted. Creatinine 2.97 on admission, 2.6 at discharge. Nephrology followed during admission. Creatinine improved with diuresis. Patient was instructed on fluid restrictions, daily weights. Patient will need to follow with cardiology, nephrology, hematology, primary care as outpatient. For problem-based summary from most recent progress note, please see below. //Symptomatic anemia: Status post transfusion of 2 units PRBCs. Hemoglobin improved. Hematology consult pending. Patient reports chronic anemia and has received Procrit in the past. Stool Hemoccult pending. Patient refuses GI intervention. = Hemoglobin continues stable. //Acute exacerbation of chronic systolic congestive heart failure: Echocardiogram shows ejection fraction of 30-35% with global hypokinesis. Cardiology following.. Continue diuresis. =start fluid restrictions. Discussed the daily weights with patient, and she decubitus at home. = Continue fluid restrictions, daily weights at home. Follow with cardiology, primary care at home. //Acute kidney injury superimposed on chronic kidney disease: Patient reports that she was followed by nephrology in [place] before moving to this area a few weeks ago. Monitor BUN and creatinine. Consult nephrology. Monitor strict intake/output. Avoid nephrotoxins. = Creatinine stable. Follow-up with nephrology as outpatient //Diabetes mellitus type 2: Patient reports hypoglycemia in the mornings. Levemir on hold. Monitor Accu-Cheks and cover with sliding scale insulin. = Blood sugars acceptable. Continue to monitor. //Abnormal TSH: Patient does not have a reported history of hypothyroidism. Check free T4. = T4 within normal limits. Follow-up with primary care. Recheck TSH as outpatient. // Coronary artery disease: Status post CABG in 1998. Serial cardiac enzymes are negative. Continue statin, beta-edy, Eliquis. //Atrial fibrillation: Currently in sinus rhythm. Continue amiodarone, Eliquis. Monitor on telemetry. // DVT prophylaxis: Eliquis. Discharge Planning discharge home in good condition. Continue diabetic diet. Activity ad jennifer. Please see discharge medication reconciliation for medication list. Follow-up primary care, hematology, nephrology, pulmonology, cardiology, primary care Pt Condition on Discharge: Good Discharge Disposition: Disch w/ Home Health Serv Discharge Time: > 30 minutes Discharge Instructions DIET: Follow Instructions for: Heart Healthy Diet, Diabetic Diet Fluid Restrictions: 1600ml Activities you can perform: Regular-No Restrictions Follow up Referrals: Appointment for Follow Up @ ONCOLOGY Appointment for Follow Up @ NEPHROLOGY Cardiology - 1 Week with Roula Jin MD Cardiology @ [facility] Nephrology - 1 Week with Heavenly Batista MD Oncology/Hematology - 1 Week with Lev Chapman MD PCP Follow-up - 1 Week with Henry Rogers DO PCP Follow-up Pulmonology - 1 Week with Hilton Chaparro MD New Medications: Oxygen (O2) (Oxygen (O2)) Device LITER AILYN.CANULA CONTINUOUS for Prevent Hypoxemia, #4 Oxygen Concentrator Portable Gaseous 2 L/min via Nasal Canula Continuous For 99 months Cholecalciferol (Vitamin D3) 5,000 Unit Cap 5000 UNITS PO DAILY for VITAMIN DEFICIENCY for 30 Days, CAP Insulin Aspart Inj (Novolog Inj) 100 Unit/Ml Inj 1 INJECTION SQ ACHS SLIDING SCALE for Blood Sugar Management for 30 Days, INJECTION [Albuterol-Ipratropium Neb] () 1 AMPULE NEBU 1 AMPULE NEB QID NEB for 30 Days Changed Medications: Bumetanide (Bumetanide) 1 Mg Tab 3 MG PO BID for FLUID OVERLOAD for 30 Days, #180 TAB 0 Refills (Changed from: 1- 3 MG; DIRECTED; 60) Continued Medications: Acetaminophen (Acetaminophen Extra Strength) 500 Mg Tablet 2 TAB PO BID PRN for PAIN SCALE 1 TO 5 Albuterol 18 GM Inh (Ventolin Hfa 18 GM Inh) 90 Mcg/Act Aer 1 PUFF INH Q4H PRN for SHORTNESS OF BREATH, #1 INHALER 0 Refills Amiodarone (Amiodarone) 100 Mg Tab 100 MG PO DAILY for Regulate Heart Beat, #30 TAB 0 Refills Apixaban (Eliquis) 2.5 Mg Tab 2.5 MG PO BID for Blood Clot Prevention, TAB 0 Refills Atorvastatin (Atorvastatin) 10 Mg Tab 10 MG PO HS for Cholesterol Management, #30 TAB 0 Refills Carvedilol (Carvedilol) 6.25 Mg Tab 3.125 MG PO BID, #60 TAB 0 Refills Cetirizine (Cetirizine) 10 Mg Tab 10 MG DAILY for Allergies, TAB 0 Refills Docusate Sodium (Colace) 100 Mg Capsule 100 MG PO BID for Prevent Constipation, #60 CAP 0 Refills Isosorbide Mononitrate (Isosorbide Mononitrate) 10 Mg Tab 10 MG PO BID for Prevent Chest Pain, #60 TAB Take 2 doses 7 hours apart. Omeprazole Magnesium (Prilosec) 20 Mg Tab Discontinued Medications: Guaifenesin/Pseudoephedrne HCl (Mucinex D ER 600-60 mg Tablet) 600 Mg-60 Mg Tab.er.12h Joe Sloan MD Feb 07, 2018 15:11
[2018-02-08] MEDS ORDERED: CEFU1TAB18 PO (08:51)
[2018-02-08] MEDS ORDERED: FREEMIS42 (09:01)
== END 2018-02-07 15:42 | disposition home health service (06) | DRG 291 ==
LOC: NEPE 11:58 → NEDA 13:52 → N05B 19:23
PROVIDERS: ADMIT Internal Medicine; ATTEND Internal Medicine
PROC: 30233N1 Transfusion of Nonautologous Red Blood Cells into Peripheral Vein, Percutaneous Approach (ICD-10-PCS; principal; 2018-02-04)
DX: I13.0 Hypertensive heart and chronic kidney disease with heart failure and stage 1 through stage 4 chronic kidney disease, or unspecified chronic kidney disease (principal); I50.23 Acute on chronic systolic (congestive) heart failure; N18.4 Chronic kidney disease, stage 4 (severe); I27.20 Pulmonary hypertension, unspecified; N17.9 Acute kidney failure, unspecified; I42.9 Cardiomyopathy, unspecified; J44.9 Chronic obstructive pulmonary disease, unspecified; Z99.81 Dependence on supplemental oxygen; N39.0 Urinary tract infection, site not specified; D63.1 Anemia in chronic kidney disease; R94.6 Abnormal results of thyroid function studies; I48.91 Unspecified atrial fibrillation; I25.10 Atherosclerotic heart disease of native coronary artery without angina pectoris; Z95.1 Presence of aortocoronary bypass graft; Z79.02 Long term (current) use of antithrombotics/antiplatelets
CPT/HCPCS: 36430; 36600; 71045; 76775; 80048; 80053; 81001; 82272; 82306; 82570; 82728; 82805; 82948; 83540; 83550; 83735; 83880; 83970; 84156; 84165; 84439; 84443; 85025; 85610; 85730; 86038; 86335; 86850; 86900; 86901; 86920; 87077; 87086; 87186; 93005; 93306; 93970; 94618; 94640; 94664; J1815; J1940; J7050; P9016; Q4081